=== PATIENT | female | born 1980 | race American Indian/Alaskan Native ===

== ENCOUNTER 2021-05-01 17:51 | Inpatient (IN) | payer OTHER, SELFPAY ==
--- NOTE | 2021-05-01 21:50 | Emergency Department Report ---
ED Psych HPI - General Chief Complaint: Psych Stated Complaint: SUICIDE Time Seen by Provider: 05/01/21 21:30 Source: patient Mode of arrival: Ambulatory - History of Present Illness Initial Comments: Patient is a 40-year-old female presents emergency room with complaints of suic idal ideations. Patient states her suicide she started yesterday. Patient states they are worsening. Patient states that she is having thoughts of overdosing. Patient states she is also having problems with heroin. Patient states she uses heroin frequently. Patient states she uses heroin by injection. Patient states she has track escobedo on both of her arms. Patient states that she is feeling depressed. Patient states that she is also anxious. Patient denies homicidal ideations. Patient denies hallucinations. Patient states she lives on the streets and is homeless. Patient states she is under a lot of stress. Patient also complains of a cough x4 days. Patient states she has a dry cough. Patient states her cough is worsening. Patient complains of fever, loss of smell, loss of taste, shortness of breath, nausea. Patient states that her symptoms are worsening. Patient states she is not vaccinated against COVID-19. Patient states she has had positive sick contacts. Patient states that her shortness of breath is better with rest and worse with exertion. Patient states she has not been evaluated for COVID-19. Patient denies chest pain. Patient denies abdominal pain. Patient also complains of dysuria. Patient states it is burning when she urinates. Patient states has been going on for 3 or 4 days. Patient states is better with rest and worse with urination. MD Complaint: suicidal ideation, feels depressed -: Sudden Associated Psychiatric Symptoms: depression, suicidal ideation, racing thoughts History of same: Yes Quality: constant Improves With: none Worsens With: none Context: recent drug abuse Associated Symptoms: shortness of breath, nausea. denies: confusion, headache, vomiting, syncope, insomnia Treatments Prior to Arrival: none If Self Harm: admits thoughts of, has plan - Related Data Allergies Allergy/AdvReac Type Severity Reaction Status Date / Time No Known Allergies Allergy Verified 05/01/21 18:13 ED Review of Systems ROS: Stated complaint: SUICIDE Other details as noted in HPI Constitutional: see HPI, chills, fever, malaise. denies: diaphoresis Eyes: denies: eye pain, eye discharge, vision change ENT: denies: ear pain, throat pain Respiratory: see HPI, cough, shortness of breath. denies: wheezing Cardiovascular: denies: chest pain, palpitations Endocrine: no symptoms reported Gastrointestinal: nausea. denies: abdominal pain, vomiting, diarrhea Genitourinary: denies: urgency, dysuria, discharge Musculoskeletal: denies: back pain, joint swelling, arthralgia Skin: denies: rash, lesions Neurological: denies: headache, weakness, paresthesias Psychiatric: as per HPI, anxiety, depression, suicidal thoughts Hematological/Lymphatic: denies: easy bleeding, easy bruising ED Past Medical Hx - Past Medical History Previous Medical History?: Yes Hx Psychiatric Treatment: Yes (Bipolar) - Surgical History Past Surgical History?: No - Family History Family history: no significant - Social History Smoking Status: Current Every Day Smoker Substance Use Type: Heroin ED Physical Exam - General Limitations: No Limitations General appearance: alert, in no apparent distress - Head Head exam: Present: atraumatic, normocephalic - Eye Eye exam: Present: normal appearance - ENT ENT exam: Present: mucous membranes moist - Neck Neck exam: Present: normal inspection - Respiratory Respiratory exam: Present: normal lung sounds bilaterally. Absent: respiratory distress, wheezes, rales - Cardiovascular Cardiovascular Exam: Present: regular rate, normal rhythm. Absent: systolic murmur, diastolic murmur, rubs, gallop - GI/Abdominal GI/Abdominal exam: Present: soft, normal bowel sounds - Extremities Exam Extremities exam: Present: normal inspection - Back Exam Back exam: Present: normal inspection - Neurological Exam Neurological exam: Present: alert, oriented X3 - Psychiatric Psychiatric exam: Present: depressed, suicidal ideation - Skin Skin exam: Present: warm, dry, normal color, other (Track escobedo noted on bilateral arms.). Absent: rash ED Course Vital Signs 05/01/21 05/01/21 05/01/21 18:08 21:50 21:54 Temperature 99.3 F 99.9 F H 99.9 F H Pulse Rate 79 74 74 Respiratory 18 20 20 Rate Blood Pressure 152/80 Blood Pressure 116/70 152/80 [Left] O2 Sat by Pulse 100 97 97 Oximetry - Reevaluation(s) Reevaluation #1: Patient is currently NSR psych room and is on isolation. COVID-19 precautions using accordance with CDC guidelines. Patient will be ambulated to assess hypoxia. Patient will have labs and a chest x-ray done. 05/01/21 22:02 Reevaluation #2: Patient was ambulated by the ER check and the patient's oxygen saturation dropped to 89% with minimal ambulation. Patient returned to 94% with rest. Patient will placed on a 1013 for her suicidal ideations. 05/01/21 22:30 Reevaluation #3: I discussed all results with patient. I discussed plan of care with patient. Patient agrees with plan of care and admission. Patient to be admitted to the hospitalist service. 05/01/21 23:25 - Consultations Consultation #1: Hospitalist consulted for admission. Hospitalist to admit patient. 05/01/21 23:25 ED Medical Decision Making - Lab Data Result diagrams: 05/01/21 22:07 05/01/21 22:07 - Radiology Data Radiology results: report reviewed, image reviewed CHEST 1 VIEW INDICATION / CLINICAL INFORMATION: cough STUDY TIME: 2232 COMPARISON: None available. FINDINGS: SUPPORT DEVICES: None HEART / MEDIASTINUM: No significant abnormality. LUNGS / PLEURA: Artifact overlies the image. Mild bibasilar density is probably artifactual. No definite acute infiltrates are seen. No pneumothorax. ADDITIONAL FINDINGS: No significant additional findings. - Medical Decision Making Patient is a 40-year-old female that presents emergency room with complaints of suicidal ideations. During the initial exam, the patient complained of also having Covid symptoms. Patient complained of cough, fever, shortness of breath. Patient also complained of loss of smell. Patient is unvaccinated. Patient was placed on a 1013 due to her suicidal ideations and a plan. Patient was placed on a ER hold. Patient had labs done which were essentially unremarkable except for anemia, UTI and positive UDS.. Patient had a chest x-ray done which was negative for acute findings. I personally reviewed the chest x-ray. During this evaluation, the patient was ambulated with technology education instructor while wearing a oxygen saturation monitor. The patient's oxygen saturation dropped to 89 to 90% with ambulation. Patient returned to 94% with rest. Patient had blood cultures done and then the patient was given Decadron, Zithromax and Rocephin. Patient admitted to the hospital service for further evaluation and treatment. At this time, the patient is unable to be medically cleared and the medical clearance will come from our hospitalist team. Critical care time documented due to the multiple reassessments, prolonged time at the bedside, interpretation of diagnostics and labs. - Differential Diagnosis PUI, Covid, hypoxia, cough, fever, shortness of breath, suicidal ideations Critical Care Time: Yes Critical care time in (mins) excluding proc time.: 35 Critical care attestation.: If time is entered above; I have spent that time in minutes in the direct care of this critically ill patient, excluding procedure time. Critical Care Time: 35 minutes ED Disposition Clinical Impression: Person under investigation for COVID-19, Cough, Shortness of breath, Suicidal ideations, Dysuria, Heroin abuse Fever Qualifiers: Fever type: unspecified Qualified Code(s): R50.9 - Fever, unspecified Respiratory failure Qualifiers: Chronicity: acute Respiratory failure complication: hypoxia Qualified Code(s): J96.01 - Acute respiratory failure with hypoxia UTI (urinary tract infection) Qualifiers: Urinary tract infection type: acute cystitis Hematuria presence: with hematuria Qualified Code(s): N30.01 - Acute cystitis with hematuria Disposition: ADMITTED INPATIENT Is pt being admited?: Yes Does the pt Need Aspirin: No Condition: Stable Time of Disposition: 23:25
[2021-05-01 22:15] LABS: Basophils % (Auto) 0.8 % (0.0-1.8); Eosinophils % (Auto) 1.7 % (0.0-4.3); Hematocrit 31.5 % (30.3-42.9); Hemoglobin 9.7 gm/dl (10.1-14.3); Lymphocytes # (Auto) 1.1 K/mm3 (1.2-5.4); Lymphocytes % (Auto) 44.5 % (13.4-35.0); Mean Corpuscular HGB Conc 31 % (30-34); Monocytes # (Auto) 0.2 K/mm3 (0.0-0.8); Monocytes % (Auto) 9.4 % (0.0-7.3); Platelet Count 309 K/mm3 (140-440); Red Blood Count 4.53 M/mm3 (3.65-5.03); Red Cell Distribution Width 19.3 % (13.2-15.2)
[2021-05-01 22:16] LABS: Mean Corpuscular Volume 70 fl (79-97)
[2021-05-01 22:18] LABS: Bacteria,Urine 2+ /HPF (Negative); Bilirubin,Urine NEG (Negative); Blood,Urine LG (Negative); Color,Urine Straw (Yellow); Protein,Urine <15 mg/dL mg/dL (Negative); Urobilinogen,Urine < 2.0 mg/dL (<2.0)
[2021-05-01 22:35] LABS: Amphetamine Screen,Urine PRESUMPTIVE NEGATIVE; Benzodiazepines Screen,Urine PRESUMPTIVE NEGATIVE; Cannabinoid Screen,Urine PRESUMPTIVE NEGATIVE; Cocaine Screen,Urine PRESUMPTIVE POSITIVE; Methadone Screen,Urine PRESUMPTIVE NEGATIVE; Opiate Screen,Urine PRESUMPTIVE POSITIVE
[2021-05-01 22:37] LABS: Alanine Aminotransferase 36 units/L (7-56); Albumin 3.6 g/dL (3.9-5); Blood Urea Nitrogen 12 mg/dL (7-17); Calcium 8.8 mg/dL (8.4-10.2); Hemolysis Index 0
[2021-05-01] MEDS ORDERED: dexAMETHasone 4 MG/ML VIAL IV ONE (22:53)
[2021-05-01] MEDS ORDERED: AZITHROMYCIN/NS 500 MG/250 ML 500 MG/250 ML BAG IV ONE (22:53)
[2021-05-01] MEDS ORDERED: cefTRIAXone/NS 2 GM/100 ML 2 GM/100 ML BAG IV ONE (22:53)
[2021-05-01 23:01] LABS: BUN/Creatinine Ratio 20
--- NOTE | 2021-05-01 23:04 | XRay Report ---
CHEST 1 VIEW INDICATION / CLINICAL INFORMATION: cough STUDY TIME: 2232 COMPARISON: None available. FINDINGS: SUPPORT DEVICES: None HEART / MEDIASTINUM: No significant abnormality. LUNGS / PLEURA: Artifact overlies the image. Mild bibasilar density is probably artifactual. No defin ite acute infiltrates are seen. No pneumothorax. ADDITIONAL FINDINGS: No significant additional findings. Signer Name: Nathan Mensah MD Signed: 05/01/2021 11:00 PM Workstation Name: [id number]
--- NOTE | 2021-05-02 01:38 | History and Physical Report ---
History of Present Illness Date of examination: 05/02/21 Date of admission: 05/01/21 23:35 Chief complaint: Shortness of breath with cough History of present illness: Patient is a 40-year-old female seen in ED at bedside. Patient presents emergency room with complaints of suicidal ideations. Patient said she is suicidal and homeless. Per ED record, patient states that she is having thoughts of overdosing. Patient states she is also having problems with heroin. Patient states she uses heroin frequently. Patient states she uses heroin by injection. Patient has track escobedo on both of her arms. Patient states that she is feeling depressed and anxious. Patient denies hallucinations. I reviewed medical record and blood work with urine toxicology. Patient is positive for opiates and cocaine. Patient also reports shortness of breath, coughing and generalized weakness. Chest x-ray done no acute finding Past History Past Medical History: other (Psych patient) Past Surgical History: No surgical history Social history: IV drug use (Urine positive for cocaine and opiates) Family history: no significant family history Medications and Allergies Allergies Allergy/AdvReac Type Severity Reaction Status Date / Time No Known Allergies Allergy Verified 05/01/21 18:13 Review of Systems Constitutional: fatigue, malaise Ears, nose, mouth and throat: no epistaxis, no bleeding gums Cardiovascular: shortness of breath Respiratory: cough Gastrointestinal: no BRBPR, no melena Rectal: no itching, no hemorrhoids Musculoskeletal: muscle weakness Integumentary: no pruritis, no redness Psychiatric: anxiety, suicidal ideation, depression, hopelessness, other (Homeless) Hematologic/Lymphatic: no easy bruising, no easy bleeding, no lymphadenopathy, no lymphedema Allergic/Immunologic: no urticaria, no allergic rhinitis Exam - Constitutional Vitals: Temp Pulse Resp BP Pulse Ox 99.9 F H 74 20 152/80 97 05/01/21 21:54 05/01/21 21:54 05/01/21 21:54 05/01/21 21:54 05/01/21 21:54 General appearance: Present: mild distress, well-nourished - EENT Eyes: Present: PERRL ENT: hearing intact, clear oral mucosa - Neck Neck: Present: supple, normal ROM - Respiratory Respiratory effort: normal Respiratory: bilateral: CTA - Cardiovascular Heart Sounds: Present: S1 & S2. Absent: rub, click - Extremities Extremities: pulses symmetrical, No edema Peripheral Pulses: within normal limits - Abdominal General gastrointestinal: Present: soft, non-tender, non-distended, normal bowel sounds Female genitourinary: Present: normal - Integumentary Integumentary: Present: clear, warm, dry - Musculoskeletal Musculoskeletal: gait normal, strength equal bilaterally - Neurologic Neurologic: CNII-XII intact, moves all extremities - Allied Health Allied health notes reviewed: nursing Results - Labs CBC & Chem 7: 05/01/21 22:07 05/02/21 02:26 Labs: Abnormal lab results 05/01/21 05/01/21 05/01/21 Range/Units 22:01 22:07 22:07 WBC 2.6 L (4.5-11.0) K/mm3 Hgb 9.7 L (10.1-14.3) gm/dl MCV 70 L (79-97) fl MCH 22 L (28-32) pg RDW 19.3 H (13.2-15.2) % Lymph % (Auto) 44.5 H (13.4-35.0) % Williamson % (Auto) 9.4 H (0.0-7.3) % Lymph # (Auto) 1.1 L (1.2-5.4) K/mm3 Seg Neutrophils # 1.1 L (1.8-7.7) K/mm3 D-Dimer (0-234) ng/mlDDU Sodium 134 L (137-145) mmol/L AST 54 H (5-40) units/L Alkaline Phosphatase 131 H (35-129) units/L Albumin 3.6 L (3.9-5) g/dL Urine WBC (Auto) 10.0 H (0.0-6.0) /HPF Salicylates (2.8-20.0) mg/dL Acetaminophen (10.0-30.0) ug/mL 05/01/21 05/01/21 05/01/21 Range/Units 22:07 22:07 23:08 WBC (4.5-11.0) K/mm3 Hgb (10.1-14.3) gm/dl MCV (79-97) fl MCH (28-32) pg RDW (13.2-15.2) % Lymph % (Auto) (13.4-35.0) % Williamson % (Auto) (0.0-7.3) % Lymph # (Auto) (1.2-5.4) K/mm3 Seg Neutrophils # (1.8-7.7) K/mm3 D-Dimer 268.18 H (0-234) ng/mlDDU Sodium (137-145) mmol/L AST (5-40) units/L Alkaline Phosphatase (35-129) units/L Albumin (3.9-5) g/dL Urine WBC (Auto) (0.0-6.0) /HPF Salicylates < 0.3 L (2.8-20.0) mg/dL Acetaminophen 5.0 L (10.0-30.0) ug/mL Assessment and Plan - Patient Problems (1) Person under investigation for COVID-19 Current Visit: Yes Status: Acute Plan to address problem: Bronchodilator oxygen supplement as needed Airborne and contact isolation per Covid protocol Monitor inflammatory markers Systemic steroid. Consult infectious disease Ascorbic acid, zinc sulfate, and vitamin D supplement (2) Cocaine abuse Current Visit: Yes Status: Acute Plan to address problem: Discussed multisubstance use cessation (3) Suicidal ideations Current Visit: Yes Status: Acute Plan to address problem: Psych consulted (4) UTI (urinary tract infection) Current Visit: Yes Status: Acute Qualifiers: Urinary tract infection type: acute cystitis Hematuria presence: with hematuria Qualified Code(s): N30.01 - Acute cystitis with hematuria Plan to address problem: Empiric antibiotic with Rocephin Gentle IV hydration (5) DVT prophylaxis Current Visit: Yes Status: Acute Plan to address problem: Subcutaneous Lovenox
[2021-05-02] MEDS ORDERED: METOCLOPRAMIDE 10 MG/2 ML INJ IV PRN (01:44)
[2021-05-02] MEDS ORDERED: NALOXONE 0.4 MG/1 ML INJ IV PRN (01:44)
[2021-05-02] MEDS ORDERED: SENNOSIDES 8.6 MG TAB PO PRN (01:44)
[2021-05-02] MEDS ORDERED: ACETAMINOPHEN 325 MG TAB PO PRN (01:44)
[2021-05-02] MEDS ORDERED: MAGNESIUM HYDROXIDE (MOM) ORAL LIQD UDC PO PRN (01:44)
[2021-05-02 02:04] LABS: C-Reactive Protein 0.1 mg/dL (0.00-1.30)
[2021-05-02 02:58] LABS: C-Reactive Protein 0.1 mg/dL (0.00-1.30)
[2021-05-02] MEDS: ONDANSETRON 4 MG/2 ML INJ IV PRN ×2 (07:00→17:28)
[2021-05-02] MEDS: SODIUM CHLORIDE 0.9% 1000 ML 1,000 ML IV SCH (07:00)
[2021-05-02] MEDS ORDERED: dexAMETHasone 4 MG/ML VIAL IV SCH (10:00)
[2021-05-02] MEDS ORDERED: NITROFURANTOIN MONOHYD/M-CRYST 100 MG CAP PO SCH (10:00)
[2021-05-02] MEDS ORDERED: ZINC SULFATE 220 MG CAP PO SCH (10:00)
--- NOTE | 2021-05-02 10:46 | Consultation ---
History of Present Illness - Reason for Consult Consult date: 05/02/21 Reason for consult: SI, hallucinations - History of Present Psychiatric Illness Per ER Note: Patient is a 40-year-old female seen in ED at bedside. Patient presents emergency room with complaints of suicidal ideations. Patient said she is suicidal and homeless. Per ED record, patient states that she is having thoughts of overdosing. Patient states she is also having problems with heroin. Patient states she uses heroin frequently. Patient states she uses heroin by injection. Patient has track escobedo on both of her arms. Patient states that she is feeling depressed and anxious. Patient denies hallucinations. I reviewed medical record and blood work with urine toxicology. Patient is positive for opiates and cocaine. Patient also reports shortness of breath, coughing and generalized weakness. Chest x-ray done no acute finding The patient was seen today, she appears withdrawn. She says she is depressed and having suicidal thoughts. The patient says "I'm just tired of living." She verbalized using "crack and heroine." She says she's hearing voices telling her to kill herself. The patient says before coming she ran into traffic. She says "I just can't take it any more. I don't want to be here." The patient counselled on drug cessation and rehab. She says she has a history of bipolar and schizophrenia but have been off meds for about a year. PAST PSYCHIATRIC HISTORY: Diagnoses: Schizophrenia and bipolar Suicide attempts or Self-harm behavior: yes Prior psychiatric hospitalizations: Yes Substance Abuse history: heroine and cocaine Previous psychiatric medications tried: could not recall, off for a year Outpatient treatment: denies PAST MEDICAL HISTORY: None reported or document Family Psychiatric History: None reported or documented SOCIAL HISTORY Marital Status: Single Living Arrangements: homeless Employment Status: Unemployed Access to guns/weapons: denies Education: History of Abuse: denies Legal History: denies REVIEW OF SYSTEMS Constitutional: Negative for weight loss ENT: Negative for stridor Respiratory: Negative for cough or hemoptysis All other systems reviewed and are negative MENTAL STATUS EXAMINATION General Appearance and Behavior: Age appropriate, good hygiene, wearing appropriate clothes, calm and cooperative, withdrawn Cooperation: engaged Psychomotor Behavior: Psychomotor normal Mood: depressed Affect and affective range: congruent with stated mood Thought Process: illogical Thought Content: SI, hallucinations Speech: Normal volume, Regular rate and rhythm, Suicidal Ideation: Yes Homicidal Ideation: Denies Hallucinations: Auditory, command Delusions: None elicited Impulse Control: impaired Insight and Judgment: Limited Memory: Limited Attention: attentive Orientation: a/o Assessment and Plan (1) Polysubstance Dependence (2) Bipolar Disorder Treatment Plan [address] 125mg po BID Olanzapine 5mg po daily Trazodone 50mg po qhs Sitter: per primary Medical: Per primary Disposition: recommend acute psychiatric inpatient treatment. Will follow. Thanks case staffed with Dr. Rea Medications and Allergies Allergies Allergy/AdvReac Type Severity Reaction Status Date / Time No Known Allergies Allergy Verified 05/01/21 18:13 Active Meds: Active Medications Acetaminophen (Acetaminophen 325 Mg Tab) 650 mg PO Q4H PRN PRN Reason: Pain MILD(1-3)/Fever >100.5/JON Al Hydrox/Mg Hydrox/Simethicone (Alum-Mag Hydroxide-Simethicone 732-126-73ea/5ml Oral Liqd 30 Ml) 30 ml PO Q4H PRN PRN Reason: Indigestion Ascorbic Acid (Ascorbic Acid 500 Mg Tab) 500 mg PO QDAY JACQUELINE Cholecalciferol (Cholecalciferol (Vit D3) 1000 Unit (25 Mcg) Tab) 1,000 unit PO QDAY JACQUELINE Dexamethasone (Dexamethasone 4 Mg/Ml Vial) 6 mg IV DAILY JACQUELINE Stop: 05/10/21 10:01 Enoxaparin Sodium (Enoxaparin 40 Mg/0.4 Ml Inj) 40 mg SUB-Q DAILY JACQUELINE; Protocol Famotidine (Famotidine 20 Mg/2 Ml Inj) 20 mg IV BID JACQUELINE Ceftriaxone Sodium (Rocephin/Ns 1 Gm/50 Ml) 1 gm in 50 mls @ 100 mls/hr IV Q24H JACQUELINE; Protocol Stop: 05/05/21 23:59 Sodium Chloride (Nacl 0.9% 1000 Ml) 1,000 mls @ 42 mls/hr IV DIRECT JACQUELINE Last Admin: 05/02/21 07:00 Dose: 42 mls/hr Documented by: Magnesium Hydroxide (Magnesium Hydroxide (Mom) Oral Liqd Udc) 30 ml PO Q4H PRN PRN Reason: Constipation Metoclopramide HCl (Metoclopramide 10 Mg/2 Ml Inj) 10 mg IV Q6H PRN PRN Reason: Nausea And Vomiting Naloxone HCl (Naloxone 0.4 Mg/1 Ml Inj) 0.1 mg IV Q2MIN PRN PRN Reason: Res Rate </= 8 or 02 SAT < 92% Ondansetron HCl (Ondansetron 4 Mg/2 Ml Inj) 4 mg IV Q8H PRN PRN Reason: Nausea And Vomiting Last Admin: 05/02/21 07:00 Dose: 4 mg Documented by: Senna (Sennosides 8.6 Mg Tab) 8.6 mg PO Q12HR PRN PRN Reason: Constipation Sodium Chloride (Sodium Chloride 0.9% 10 Ml Flush Syringe) 10 ml IV BID JACQUELINE Sodium Chloride (Sodium Chloride 0.9% 10 Ml Flush Syringe) 10 ml IV PRN PRN PRN Reason: LINE FLUSH Tramadol HCl (Tramadol 50 Mg Tab) 50 mg PO Q6H PRN PRN Reason: Pain, Moderate (4-6) Zinc Sulfate (Zinc Sulfate 220 Mg Cap) 220 mg PO QDAY [facility] Mental Status Exam - Vital signs Last Vital Signs Temp 100.7 F H 05/02/21 03:50 Pulse 83 05/02/21 03:50 Resp 20 05/02/21 03:50 BP 163/104 05/02/21 03:50 Pulse Ox 99 05/02/21 08:05 Results Result Diagrams: 05/01/21 22:07 05/02/21 02:26 Abnormal lab results 05/01/21 05/01/21 05/01/21 Range/Units 22:01 22:07 22:07 WBC 2.6 L (4.5-11.0) K/mm3 Hgb 9.7 L (10.1-14.3) gm/dl MCV 70 L (79-97) fl MCH 22 L (28-32) pg RDW 19.3 H (13.2-15.2) % Lymph % (Auto) 44.5 H (13.4-35.0) % [place] % (Auto) 9.4 H (0.0-7.3) % Lymph # (Auto) 1.1 L (1.2-5.4) K/mm3 Seg Neutrophils # 1.1 L (1.8-7.7) K/mm3 D-Dimer (0-234) ng/mlDDU Sodium 134 L (137-145) mmol/L Glucose (65-100) mg/dL AST 54 H (5-40) units/L Alkaline Phosphatase 131 H (35-129) units/L Lactate Dehydrogenase (91-180) units/L Albumin 3.6 L (3.9-5) g/dL Urine WBC (Auto) 10.0 H (0.0-6.0) /HPF Salicylates (2.8-20.0) mg/dL Acetaminophen (10.0-30.0) ug/mL 05/01/21 05/01/21 05/01/21 Range/Units 22:07 22:07 23:08 WBC (4.5-11.0) K/mm3 Hgb (10.1-14.3) gm/dl MCV (79-97) fl MCH (28-32) pg RDW (13.2-15.2) % Lymph % (Auto) (13.4-35.0) % Monroe % (Auto) (0.0-7.3) % Lymph # (Auto) (1.2-5.4) K/mm3 Seg Neutrophils # (1.8-7.7) K/mm3 D-Dimer 268.18 H (0-234) ng/mlDDU Sodium (137-145) mmol/L Glucose (65-100) mg/dL AST (5-40) units/L Alkaline Phosphatase (35-129) units/L Lactate Dehydrogenase (91-180) units/L Albumin (3.9-5) g/dL Urine WBC (Auto) (0.0-6.0) /HPF Salicylates < 0.3 L (2.8-20.0) mg/dL Acetaminophen 5.0 L (10.0-30.0) ug/mL 05/01/21 05/02/21 05/02/21 Range/Units 23:08 02:26 02:26 WBC (4.5-11.0) K/mm3 Hgb (10.1-14.3) gm/dl MCV (79-97) fl MCH (28-32) pg RDW (13.2-15.2) % Lymph % (Auto) (13.4-35.0) % [place] % (Auto) (0.0-7.3) % Lymph # (Auto) (1.2-5.4) K/mm3 Seg Neutrophils # (1.8-7.7) K/mm3 D-Dimer 383.59 H (0-234) ng/mlDDU Sodium (137-145) mmol/L Glucose 118 H (65-100) mg/dL AST (5-40) units/L Alkaline Phosphatase (35-129) units/L Lactate Dehydrogenase 206 H 200 H (91-180) units/L Albumin (3.9-5) g/dL Urine WBC (Auto) (0.0-6.0) /HPF Salicylates (2.8-20.0) mg/dL Acetaminophen (10.0-30.0) ug/mL All other labs normal.
--- NOTE | 2021-05-02 11:49 | Event Note ---
Date: 05/02/21 Patient seen and evaluated this morning during rounds. Psychiatry recommends inpatient psych treatment and ten thirteen order has been placed. We will continue supportive care pending COVID-19 PCR result.
[2021-05-02] MEDS ORDERED: IBUPROFEN 800 MG TAB PO PRN (13:20)
--- NOTE | 2021-05-02 13:47 | Consultation ---
History of Present Illness - Reason for Consult Consult date: 05/02/21 PUI Requesting physician: PATRICA DANIELLE - History of Present Illness The patient is a 40-year-old female with polysubstance abuse admitted to the hospital with suicidal ideation. She was also having cough and shortness of breath. Labs showed WBC 2.6, D-dimer 383, ferritin 18.0, LDH 200, procalcitonin 0.19, CRP 0.1. UA with 10 WBC, 8 RBC. Urinary tox screen positive for cocaine and opiates. Chest x-ray did not reveal any pneumonia. Patient was made a COVID-19 PUI and ID was consulted. Review of Systems: reviewed in the chart, unable to obtain, minimize risk of transmission Past History Past Medical History: other (Psych patient) Past Surgical History: No surgical history Social history: IV drug use (Urine positive for cocaine and opiates) Family history: no significant family history Medications and Allergies Allergies Allergy/AdvReac Type Severity Reaction Status Date / Time No Known Allergies Allergy Verified 05/01/21 18:13 Active Meds: Active Medications Acetaminophen (Acetaminophen 325 Mg Tab) 650 mg PO Q4H PRN PRN Reason: Pain MILD(1-3)/Fever >100.5/JON Al Hydrox/Mg Hydrox/Simethicone (Alum-Mag Hydroxide-Simethicone [id number]/5ml Oral Liqd 30 Ml) 30 ml PO Q4H PRN PRN Reason: Indigestion Ascorbic Acid (Ascorbic Acid 500 Mg Tab) 500 mg PO QDAY [facility] Cholecalciferol (Cholecalciferol (Vit D3) 1000 Unit (25 Mcg) Tab) 1,000 unit PO QDAY JACQUELINE Clonidine HCl (Clonidine 0.2 Mg Tab) 0.2 mg PO Q6HR JACQUELINE Divalproex Sodium (Divalproex Dr 125 Mg Tab) 125 mg PO BID JACQUELINE Enoxaparin Sodium (Enoxaparin 40 Mg/0.4 Ml Inj) 40 mg SUB-Q DAILY JACQUELINE; Protocol Famotidine (Famotidine 20 Mg/2 Ml Inj) 20 mg IV BID JACQUELINE Sodium Chloride (Nacl 0.9% 1000 Ml) 1,000 mls @ 42 mls/hr IV DIRECT JACQUELINE Last Admin: 05/02/21 07:00 Dose: 42 mls/hr Documented by: Ibuprofen (Ibuprofen 800 Mg Tab) 800 mg PO Q8H PRN PRN Reason: Headache Magnesium Hydroxide (Magnesium Hydroxide (Mom) Oral Liqd Udc) 30 ml PO Q4H PRN PRN Reason: Constipation Metoclopramide HCl (Metoclopramide 10 Mg/2 Ml Inj) 10 mg IV Q6H PRN PRN Reason: Nausea And Vomiting Naloxone HCl (Naloxone 0.4 Mg/1 Ml Inj) 0.1 mg IV Q2MIN PRN PRN Reason: Res Rate </= 8 or 02 SAT < 92% Olanzapine (Olanzapine 5 Mg Tab) 5 mg PO QDAY JACQUELINE Ondansetron HCl (Ondansetron 4 Mg/2 Ml Inj) 4 mg IV Q8H PRN PRN Reason: Nausea And Vomiting Last Admin: 05/02/21 07:00 Dose: 4 mg Documented by: Senna (Sennosides 8.6 Mg Tab) 8.6 mg PO Q12HR PRN PRN Reason: Constipation Sodium Chloride (Sodium Chloride 0.9% 10 Ml Flush Syringe) 10 ml IV BID JACQUELINE Sodium Chloride (Sodium Chloride 0.9% 10 Ml Flush Syringe) 10 ml IV PRN PRN PRN Reason: LINE FLUSH Tramadol HCl (Tramadol 50 Mg Tab) 50 mg PO Q6H PRN PRN Reason: Pain, Moderate (4-6) Trazodone HCl (Trazodone 50 Mg Tab) 50 mg PO QHS [facility] Physical Examination - Physical Exam Narrative exam: Physical Exam (reviewed in chart to minimize risk of transmission) Constitutional: deferred Head, Ears, Nose: deferred Eyes: deferred Neck: deferred Oral: deferred Cardiovascular: deferred Respiratory: deferred GI: deferred Musculoskeletal: deferred Skin: deferred Hem/Lymphatic: deferred Psych: deferred Neurological: deferred - Constitutional Vitals: Vital Signs Temp Pulse Resp BP Pulse Ox 100.7 F H 83 20 163/104 99 05/02/21 03:50 05/02/21 03:50 05/02/21 03:50 05/02/21 03:50 05/02/21 08:05 Temperature -Last 24 Hours Temperature 100.7 F Temperature 99.9 F Temperature 99.9 F Temperature 99.3 F Results - Labs CBC & Chem 7: 05/01/21 22:07 05/02/21 02:26 Labs: Abnormal lab results 05/01/21 05/01/21 05/01/21 Range/Units 22:01 22:07 22:07 WBC 2.6 L (4.5-11.0) K/mm3 Hgb 9.7 L (10.1-14.3) gm/dl MCV 70 L (79-97) fl MCH 22 L (28-32) pg RDW 19.3 H (13.2-15.2) % Lymph % (Auto) 44.5 H (13.4-35.0) % [place] % (Auto) 9.4 H (0.0-7.3) % Lymph # (Auto) 1.1 L (1.2-5.4) K/mm3 Seg Neutrophils # 1.1 L (1.8-7.7) K/mm3 D-Dimer (0-234) ng/mlDDU Sodium 134 L (137-145) mmol/L Glucose (65-100) mg/dL AST 54 H (5-40) units/L Alkaline Phosphatase 131 H (35-129) units/L Lactate Dehydrogenase (91-180) units/L Albumin 3.6 L (3.9-5) g/dL Urine WBC (Auto) 10.0 H (0.0-6.0) /HPF Salicylates (2.8-20.0) mg/dL Acetaminophen (10.0-30.0) ug/mL 05/01/21 05/01/21 05/01/21 Range/Units 22:07 22:07 23:08 WBC (4.5-11.0) K/mm3 Hgb (10.1-14.3) gm/dl MCV (79-97) fl MCH (28-32) pg RDW (13.2-15.2) % Lymph % (Auto) (13.4-35.0) % [place] % (Auto) (0.0-7.3) % Lymph # (Auto) (1.2-5.4) K/mm3 Seg Neutrophils # (1.8-7.7) K/mm3 D-Dimer 268.18 H (0-234) ng/mlDDU Sodium (137-145) mmol/L Glucose (65-100) mg/dL AST (5-40) units/L Alkaline Phosphatase (35-129) units/L Lactate Dehydrogenase (91-180) units/L Albumin (3.9-5) g/dL Urine WBC (Auto) (0.0-6.0) /HPF Salicylates < 0.3 L (2.8-20.0) mg/dL Acetaminophen 5.0 L (10.0-30.0) ug/mL 05/01/21 05/02/21 05/02/21 Range/Units 23:08 02:26 02:26 WBC (4.5-11.0) K/mm3 Hgb (10.1-14.3) gm/dl MCV (79-97) fl MCH (28-32) pg RDW (13.2-15.2) % Lymph % (Auto) (13.4-35.0) % [place] % (Auto) (0.0-7.3) % Lymph # (Auto) (1.2-5.4) K/mm3 Seg Neutrophils # (1.8-7.7) K/mm3 D-Dimer 383.59 H (0-234) ng/mlDDU Sodium (137-145) mmol/L Glucose 118 H (65-100) mg/dL AST (5-40) units/L Alkaline Phosphatase (35-129) units/L Lactate Dehydrogenase 206 H 200 H (91-180) units/L Albumin (3.9-5) g/dL Urine WBC (Auto) (0.0-6.0) /HPF Salicylates (2.8-20.0) mg/dL Acetaminophen (10.0-30.0) ug/mL - Imaging and Cardiology Chest x-ray: report reviewed, image reviewed (no pna) Assessment and Plan Cultures: SARS CoV2 PCR: Pending 05/01/2021 blood culture: In process A/P: 40-year-old female with: #COVID-19 PUI #Suicidal ideation #Leukopenia #Polysubstance abuse including IVDU Recs: Patient is not hypoxic, has no evidence of pneumonia on chest x-ray. Antibiotics and steroids discontinued Follow-up COVID-19 PCR June Norris MD, FACP [facility] O: [phone] F: [phone]
[2021-05-02] MEDS: cloNIDine 0.2 MG TAB PO SCH ×2 (15:00→18:09)
[2021-05-02] MEDS: ENOXAPARIN 40 MG/0.4 ML INJ SUB-Q SCH (17:35)
[2021-05-02] MEDS: FAMOTIDINE 20 MG/2 ML INJ IV SCH ×2 (17:36→22:32)
[2021-05-02] MEDS: ASCORBIC ACID 500 MG TAB PO SCH (17:36)
[2021-05-02] MEDS: CHOLECALCIFEROL (VIT D3) 1000 UNIT (25 mcg) TAB PO SCH (17:37)
[2021-05-02] MEDS: DIVALPROEX DR 125 MG TAB PO SCH ×2 (17:37→22:30)
[2021-05-02] MEDS ORDERED: cefTRIAXone/NS 1 GM/50 ML 1 GM/50 ML BAG IV SCH (22:00)
[2021-05-02] MEDS: traZODone 50 MG TAB PO SCH (22:32)
[2021-05-03] MEDS: cloNIDine 0.2 MG TAB PO SCH ×4 (00:42→23:47)
[2021-05-03 07:01] LABS: Hematocrit 37.2 % (30.3-42.9); Mean Corpuscular HGB Conc 32 % (30-34); Platelet Count 404 K/mm3 (140-440); Red Blood Count 5.48 M/mm3 (3.65-5.03); Red Cell Distribution Width 18.8 % (13.2-15.2)
[2021-05-03 07:08] LABS: Mean Corpuscular Volume 68 fl (79-97)
[2021-05-03 07:25] LABS: Alanine Aminotransferase 31 units/L (7-56); Blood Urea Nitrogen 14 mg/dL (7-17); Calcium 9.5 mg/dL (8.4-10.2); Hemolysis Index 0
--- NOTE | 2021-05-03 07:32 | Progress Note ---
Assessment and Plan Assessment and plan: #COVID-19 infection -positive PCR 05/01 -not requiring oxygen, no indication for steroids or remdesivir at this time -continuous pulse oximetry -continue isolation per COVID protocols -supportive care #Suicidal ideation -Psychiatry following, assistance appreciated -no endorsement of SI today during interview -continue Depakote and Zyprexa #Leukopenia -WBC improved to 4.6 today -will continue to monitor -patient has history of IVDU, will consider Hepatitis and HIV screening #Polysubstance abuse -UDS positive for opiates and cocaine -self reported heroin IV use -IVFs and clondine for withdrawal symptoms -PRN zofran for N/V #DVT prophylaxis -lovenox Disposition Plan: Continue medical care Total Time Spent with Patient (Minutes): 20 minutes History Interval history: No acute events overnight. Patient nonconversant this morning and is sleeping peacefully. Hospitalist Physical - Physical exam Narrative exam: GENERAL: Thin woman. Lying in bed bed in no acute distress. HEENT: Poor dentition CHEST/LUNGS: CTAB on room air HEART/CARDIOVASCULAR: RRR. No murmur, rubs or gallops appreciated. ABDOMEN: +BS. NT/ND. EXTREMITIES: No cyanosis, clubbing or edema. PSYCH: Cooperative. - Constitutional Vitals: Temp Pulse Resp BP Pulse Ox 99.8 F H 86 18 158/103 94 05/03/21 04:11 05/03/21 04:11 05/03/21 04:11 05/03/21 04:11 05/03/21 04:11 General appearance: Present: mild distress, well-nourished - Allied Health Allied health notes reviewed: nursing Results - Labs CBC & Chem 7: 05/03/21 06:40 05/03/21 06:40 Labs: Laboratory Last Values WBC 4.6 K/mm3 (4.5-11.0) 05/03/21 06:40 RBC 5.48 M/mm3 (3.65-5.03) H 05/03/21 06:40 Hgb 12.0 gm/dl (10.1-14.3) 05/03/21 06:40 Hct 37.2 % (30.3-42.9) 05/03/21 06:40 MCV 68 fl (79-97) L 05/03/21 06:40 MCH 22 pg (28-32) L 05/03/21 06:40 MCHC 32 % (30-34) 05/03/21 06:40 RDW 18.8 % (13.2-15.2) H 05/03/21 06:40 Plt Count 404 K/mm3 (140-440) 05/03/21 06:40 Lymph % (Auto) 44.5 % (13.4-35.0) H 05/01/21 22:07 [place] % (Auto) 9.4 % (0.0-7.3) H 05/01/21 22:07 Eos % (Auto) 1.7 % (0.0-4.3) 05/01/21 22:07 Baso % (Auto) 0.8 % (0.0-1.8) 05/01/21 22:07 Lymph # (Auto) 1.1 K/mm3 (1.2-5.4) L 05/01/21 22:07 [place] # (Auto) 0.2 K/mm3 (0.0-0.8) 05/01/21 22:07 Eos # (Auto) 0.0 K/mm3 (0.0-0.4) 05/01/21 22:07 Baso # (Auto) 0.0 K/mm3 (0.0-0.1) 05/01/21 22:07 Seg Neutrophils % 43.6 % (40.0-70.0) 05/01/21 22:07 Seg Neutrophils # 1.1 K/mm3 (1.8-7.7) L 05/01/21 22:07 D-Dimer 383.59 ng/mlDDU (0-234) H 05/02/21 02:26 Sodium 134 mmol/L (137-145) L 05/01/21 22:07 Potassium 4.1 mmol/L (3.6-5.0) 05/01/21 22:07 Chloride 99.3 mmol/L (98-107) 05/01/21 22:07 Carbon Dioxide 25 mmol/L (22-30) 05/01/21 22:07 Anion Gap 14 mmol/L 05/01/21 22:07 BUN 12 mg/dL (7-17) 05/01/21 22:07 Creatinine 0.6 mg/dL (0.6-1.2) 05/01/21 22:07 Estimated GFR > 60 ml/min 05/01/21 22:07 BUN/Creatinine Ratio 20 % 05/01/21 22:07 Glucose 118 mg/dL (65-100) H 05/02/21 02:26 Calcium 8.8 mg/dL (8.4-10.2) 05/01/21 22:07 Ferritin 18.0 ng/mL (10.0-200.0) 05/02/21 02:26 Total Bilirubin < 0.20 mg/dL (0.1-1.2) 05/01/21 22:07 AST 54 units/L (5-40) H 05/01/21 22:07 ALT 36 units/L (7-56) 05/01/21 22:07 Alkaline Phosphatase 131 units/L (35-129) H 05/01/21 22:07 Lactate Dehydrogenase 200 units/L (91-180) H 05/02/21 02:26 C-Reactive Protein 0.10 mg/dL (0.00-1.30) 05/02/21 02:26 Total Protein 7.5 g/dL (6.3-8.2) 05/01/21 22:07 Albumin 3.6 g/dL (3.9-5) L 05/01/21 22:07 Albumin/Globulin Ratio 0.9 % 05/03/21 06:40 Procalcitonin 0.19 ng/mL (<0.15) 05/01/21 23:08 HCG, Qual Negative (Negative) 05/01/21 22:07 Urine Color Straw (Yellow) 05/01/21 22:01 Urine Turbidity Clear (Clear) 05/01/21 22:01 Urine pH 7.0 (5.0-7.0) 05/01/21 22:01 Ur Specific [place] 1.006 (1.003-1.030) 05/01/21 22:01 Urine Protein <15 mg/dl mg/dL (Negative) 05/01/21 22:01 Urine Glucose (UA) Neg mg/dL (Negative) 05/01/21 22:01 Urine Ketones Neg mg/dL (Negative) 05/01/21 22:01 Urine Blood Lg (Negative) 05/01/21 22:01 Urine Nitrite Neg (Negative) 05/01/21 22:01 Urine Bilirubin Neg (Negative) 05/01/21 22:01 Urine Urobilinogen < 2.0 mg/dL (<2.0) 05/01/21 22:01 Ur Leukocyte Esterase Tr (Negative) 05/01/21 22:01 Urine WBC (Auto) 10.0 /HPF (0.0-6.0) H 05/01/21 22:01 Urine RBC (Auto) 8.0 /HPF (0.0-6.0) 05/01/21 22:01 U Epithel Cells (Auto) 1.0 /HPF (0-13.0) 05/01/21 22:01 Urine Bacteria (Auto) 2+ /HPF (Negative) 05/01/21 22:01 Salicylates < 0.3 mg/dL (2.8-20.0) L 05/01/21 22:07 Urine Opiates Screen Presumptive positive 05/01/21 22:01 Urine Methadone Screen Presumptive negative 05/01/21 22:01 Acetaminophen 5.0 ug/mL (10.0-30.0) L 05/01/21 22:07 Ur Barbiturates Screen Presumptive negative 05/01/21 22:01 Ur Phencyclidine Scrn Presumptive negative 05/01/21 22:01 Ur Amphetamines Screen Presumptive negative 05/01/21 22:01 U Benzodiazepines Scrn Presumptive negative 05/01/21 22:01 Urine Cocaine Screen Presumptive positive 05/01/21 22:01 U Marijuana (THC) Screen Presumptive negative 05/01/21 22:01 Drugs of Abuse Note Disclamer 05/01/21 22:01 Plasma/Serum Alcohol < 0.01 % (0-0.07) 05/01/21 22:07 Coronavirus (PCR) Positive (Negative) A 05/02/21 Unknown Microbiology: Microbiology 05/01/21 23:42 Peripheral/Venous Blood Culture - Preliminary NO GROWTH AFTER 24 HOURS 05/01/21 23:08 Peripheral/Venous Blood Culture - Preliminary NO GROWTH AFTER 24 HOURS Oneill/IV: Voiding Method Toilet Active Medications - Current Medications Current Medications: Generic Name Dose Route Start Last Admin Trade Name Freq PRN Reason Stop Dose Admin Acetaminophen 650 mg 05/02/21 01:44 Acetaminophen 325 Mg Tab PO Q4H PRN Pain MILD(1-3)/Fever >100.5/JON Al Hydrox/Mg Hydrox/Simethicone 30 ml 05/02/21 01:44 Alum-Mag Hydroxide-Simethicone [id number]/5ml Oral Liqd 30 Ml PO Q4H PRN Indigestion Ascorbic Acid 500 mg 05/02/21 10:00 05/02/21 17:36 Ascorbic Acid 500 Mg Tab PO 500 mg QDAY JACQUELINE Administration Cholecalciferol 1,000 unit 05/02/21 10:00 05/02/21 17:37 Cholecalciferol (Vit D3) 1000 Unit (25 Mcg) Tab PO 1,000 unit QDAY JACQUELINE Administration Clonidine HCl 0.2 mg 05/02/21 14:00 05/03/21 06:19 Clonidine 0.2 Mg Tab PO 0.2 mg Q6HR JACQUELINE Administration Divalproex Sodium 125 mg 05/02/21 11:00 05/02/21 22:[address] 125 Mg Tab PO Not Given BID JACQUELINE Enoxaparin Sodium 40 mg 05/02/21 10:00 05/02/21 17:35 Enoxaparin 40 Mg/0.4 Ml Inj SUB-Q 40 mg DAILY JACQUELINE Administration Protocol Famotidine 20 mg 05/02/21 10:00 05/02/21 22:32 Famotidine 20 Mg/2 Ml Inj IV 20 mg BID JACQUELINE Administration Sodium Chloride 1,000 mls @ 42 mls/hr 05/02/21 06:45 05/02/21 07:00 Nacl 0.9% 1000 Ml IV 42 mls/hr DIRECT JACQUELINE Administration Ibuprofen 800 mg 05/02/21 13:20 Ibuprofen 800 Mg Tab PO Q8H PRN Headache Magnesium Hydroxide 30 ml 05/02/21 01:44 Magnesium Hydroxide (Mom) Oral Liqd Udc PO Q4H PRN Constipation Metoclopramide HCl 10 mg 05/02/21 01:44 Metoclopramide 10 Mg/2 Ml Inj IV Q6H PRN Nausea And Vomiting Naloxone HCl 0.1 mg 05/02/21 01:44 Naloxone 0.4 Mg/1 Ml Inj IV Q2MIN PRN Res Rate </= 8 or 02 SAT < 92% Olanzapine 5 mg 05/02/21 11:00 05/02/21 17:37 Olanzapine 5 Mg Tab PO 5 mg QDAY JACQUELINE Administration Ondansetron HCl 4 mg 05/02/21 01:44 05/02/21 17:28 Ondansetron 4 Mg/2 Ml Inj IV 4 mg Q8H PRN Administration Nausea And Vomiting Senna 8.6 mg 05/02/21 01:44 Sennosides 8.6 Mg Tab PO Q12HR PRN Constipation Sodium Chloride 10 ml 05/02/21 10:00 05/02/21 22:32 Sodium Chloride 0.9% 10 Ml Flush Syringe IV 10 ml BID JACQUELINE Administration Sodium Chloride 10 ml 05/02/21 01:44 Sodium Chloride 0.9% 10 Ml Flush Syringe IV PRN PRN LINE FLUSH Tramadol HCl 50 mg 05/02/21 01:48 Tramadol 50 Mg Tab PO Q6H PRN Pain, Moderate (4-6) Trazodone HCl 50 mg 05/02/21 22:00 05/02/21 22:32 Trazodone 50 Mg Tab PO 50 mg QHS JACQUELINE Administration
[2021-05-03 07:33] LABS: BUN/Creatinine Ratio 23
[2021-05-03] MEDS: ASCORBIC ACID 500 MG TAB PO SCH (09:14)
[2021-05-03] MEDS: FAMOTIDINE 20 MG/2 ML INJ IV SCH (09:15)
[2021-05-03] MEDS: CHOLECALCIFEROL (VIT D3) 1000 UNIT (25 mcg) TAB PO SCH (09:15)
[2021-05-03] MEDS: ENOXAPARIN 40 MG/0.4 ML INJ SUB-Q SCH (09:18)
[2021-05-03] MEDS: DIVALPROEX DR 125 MG TAB PO SCH ×2 (09:18→21:25)
--- NOTE | 2021-05-03 11:29 | Progress Note ---
Assessment and Plan Cultures: SARS CoV2 PCR: Positive 05/01/2021 blood culture: No growth A/P: 40-year-old female with: #COVID-19 infection #Suicidal ideation #Leukopenia #Polysubstance abuse including IVDU Recs: Patient is not hypoxic, has no evidence of pneumonia on chest x-ray. No need for antibiotics, remdesivir or steroids ID will sign off. Please reconsult as needed. June Norris MD, FACP [facility] O: [phone] F: [phone] Subjective Date of service: 05/03/21 Interval history: No fever. Remains on room air. Objective - Exam Narrative Exam: Physical Exam (reviewed in chart to minimize risk of transmission) Constitutional: deferred Head, Ears, Nose: deferred Eyes: deferred Neck: deferred Oral: deferred Cardiovascular: deferred Respiratory: deferred GI: deferred Musculoskeletal: deferred Skin: deferred Hem/Lymphatic: deferred Psych: deferred Neurological: deferred - Constitutional Vitals: Vital Signs Temp Pulse Resp BP Pulse Ox 99.8 F H 86 18 158/103 100 05/03/21 04:11 05/03/21 04:11 05/03/21 04:11 05/03/21 04:11 05/03/21 08:30 Temperature -Last 24 Hours Temperature 99.8 F Temperature 99.6 F Temperature 98.2 F Temperature 99.2 F Temperature 99.2 F - Labs CBC & Chem 7: 05/03/21 06:40 05/03/21 06:40 Labs: Abnormal lab results 05/02/21 05/03/21 05/03/21 Range/Units Unknown 06:40 06:40 RBC 5.48 H (3.65-5.03) M/mm3 MCV 68 L (79-97) fl MCH 22 L (28-32) pg RDW 18.8 H (13.2-15.2) % Sodium 133 L (137-145) mmol/L Potassium 3.5 L (3.6-5.0) mmol/L Chloride 95.8 L (98-107) mmol/L Glucose 112 H (65-100) mg/dL Total Protein 8.7 H (6.3-8.2) g/dL Coronavirus (PCR) Positive A (Negative)
[2021-05-03] MEDS: FAMOTIDINE 20 MG TAB PO SCH ×2 (12:42→21:26)
[2021-05-03] MEDS: traMADol 50 MG TAB PO PRN ×2 (12:43→21:26)
[2021-05-03] MEDS: traZODone 50 MG TAB PO SCH (21:26)
[2021-05-03] MEDS: SODIUM CHLORIDE 0.9% 1000 ML 1,000 ML IV SCH (21:27)
[2021-05-03] MEDS: ONDANSETRON 4 MG/2 ML INJ IV PRN (21:41)
[2021-05-04] MEDS: cloNIDine 0.2 MG TAB PO SCH ×4 (05:39→18:09)
[2021-05-04 06:42] LABS: Hematocrit 35.4 % (30.3-42.9); Mean Corpuscular HGB Conc 34 % (30-34); Platelet Count 363 K/mm3 (140-440); Red Blood Count 5.22 M/mm3 (3.65-5.03); Red Cell Distribution Width 19.3 % (13.2-15.2)
[2021-05-04 06:45] LABS: Mean Corpuscular Volume 68 fl (79-97)
[2021-05-04 07:02] LABS: BUN/Creatinine Ratio 26; Blood Urea Nitrogen 18 mg/dL (7-17); Calcium 9.3 mg/dL (8.4-10.2); Hemolysis Index 8
--- NOTE | 2021-05-04 07:39 | Progress Note ---
Assessment and Plan Assessment and plan: #COVID-19 infection -positive PCR 05/01 -not requiring oxygen, no indication for steroids or remdesivir at this time -continuous pulse oximetry -continue isolation per COVID protocols -supportive care #Suicidal ideation -Psychiatry following, assistance appreciated -continue Depakote and Zyprexa #Acidosis -Bicarbonate level 18, AG nineteen -Normal saline discontinued -Repeat BMP and lactate ordered #UTI -Urine culture growing gram-negative rods -Patient reported dysuria -started ceftriaxone, will treat for 3 days #Leukopenia -resolved -patient has history of IVDU, will consider Hepatitis and HIV screening #Polysubstance abuse -UDS positive for opiates and cocaine -self reported heroin IV use -IVFs and clondine for withdrawal symptoms -PRN zofran for N/V #DVT prophylaxis -lovenox Disposition Plan: Discharge to inpatient psych once medically stable Total Time Spent with Patient (Minutes): 20 minutes History Interval history: No acute events overnight. Patient reports feeling a little bit better today. Is able to tolerate liquids without issue. No other complaints at this time. Hospitalist Physical - Physical exam Narrative exam: GENERAL: Thin woman. Lying in bed bed in no acute distress. HEENT: Poor dentition CHEST/LUNGS: CTAB on room air HEART/CARDIOVASCULAR: RRR. No murmur, rubs or gallops appreciated. ABDOMEN: +BS. NT/ND. EXTREMITIES: No cyanosis, clubbing or edema. PSYCH: Cooperative. - Constitutional Vitals: Temp Pulse Resp BP Pulse Ox 99.8 F H 63 20 145/94 100 05/04/21 05:14 05/04/21 05:39 05/04/21 05:14 05/04/21 05:39 05/04/21 05:14 General appearance: Present: mild distress, well-nourished Results - Labs CBC & Chem 7: 05/04/21 05:04 05/04/21 05:04 Labs: Laboratory Last Values WBC 5.6 K/mm3 (4.5-11.0) 05/04/21 05:04 RBC 5.22 M/mm3 (3.65-5.03) H 05/04/21 05:04 Hgb 12.0 gm/dl (10.1-14.3) 05/04/21 05:04 Hct 35.4 % (30.3-42.9) 05/04/21 05:04 MCV 68 fl (79-97) L 05/04/21 05:04 MCH 23 pg (28-32) L 05/04/21 05:04 MCHC 34 % (30-34) 05/04/21 05:04 RDW 19.3 % (13.2-15.2) H 05/04/21 05:04 Plt Count 363 K/mm3 (140-440) 05/04/21 05:04 Lymph % (Auto) 44.5 % (13.4-35.0) H 05/01/21 22:07 [place] % (Auto) 9.4 % (0.0-7.3) H 05/01/21 22:07 Eos % (Auto) 1.7 % (0.0-4.3) 05/01/21 22:07 Baso % (Auto) 0.8 % (0.0-1.8) 05/01/21 22:07 Lymph # (Auto) 1.1 K/mm3 (1.2-5.4) L 05/01/21 22:07 [place] # (Auto) 0.2 K/mm3 (0.0-0.8) 05/01/21 22:07 Eos # (Auto) 0.0 K/mm3 (0.0-0.4) 05/01/21 22:07 Baso # (Auto) 0.0 K/mm3 (0.0-0.1) 05/01/21 22:07 Seg Neutrophils % 43.6 % (40.0-70.0) 05/01/21 22:07 Seg Neutrophils # 1.1 K/mm3 (1.8-7.7) L 05/01/21 22:07 D-Dimer 383.59 ng/mlDDU (0-234) H 05/02/21 02:26 Sodium 139 mmol/L (137-145) 05/04/21 05:04 Potassium 3.7 mmol/L (3.6-5.0) 05/04/21 05:04 Chloride 102.2 mmol/L (98-107) 05/04/21 05:04 Carbon Dioxide 18 mmol/L (22-30) L D 05/04/21 05:04 Anion Gap 23 mmol/L 05/04/21 05:04 BUN 18 mg/dL (7-17) H 05/04/21 05:04 Creatinine 0.7 mg/dL (0.6-1.2) 05/04/21 05:04 Estimated GFR > 60 ml/min 05/04/21 05:04 BUN/Creatinine Ratio 26 % 05/04/21 05:04 Glucose 97 mg/dL (65-100) 05/04/21 05:04 Calcium 9.3 mg/dL (8.4-10.2) 05/04/21 05:04 Ferritin 18.0 ng/mL (10.0-200.0) 05/02/21 02:26 Total Bilirubin 0.20 mg/dL (0.1-1.2) 05/03/21 06:40 AST 31 units/L (5-40) 05/03/21 06:40 ALT 31 units/L (7-56) 05/03/21 06:40 Alkaline Phosphatase 125 units/L (35-129) 05/03/21 06:40 Lactate Dehydrogenase 200 units/L (91-180) H 05/02/21 02:26 C-Reactive Protein 0.10 mg/dL (0.00-1.30) 05/02/21 02:26 Total Protein 8.7 g/dL (6.3-8.2) H 05/03/21 06:40 Albumin 4.0 g/dL (3.9-5) 05/03/21 06:40 Albumin/Globulin Ratio 0.9 % 05/03/21 06:40 Procalcitonin 0.19 ng/mL (<0.15) 05/01/21 23:08 HCG, Qual Negative (Negative) 05/01/21 22:07 Urine Color Straw (Yellow) 05/01/21 22:01 Urine Turbidity Clear (Clear) 05/01/21 22:01 Urine pH 7.0 (5.0-7.0) 05/01/21 22:01 Ur Specific [place] 1.006 (1.003-1.030) 05/01/21 22:01 Urine Protein <15 mg/dl mg/dL (Negative) 05/01/21 22:01 Urine Glucose (UA) Neg mg/dL (Negative) 05/01/21 22:01 Urine Ketones Neg mg/dL (Negative) 05/01/21 22:01 Urine Blood Lg (Negative) 05/01/21 22:01 Urine Nitrite Neg (Negative) 05/01/21 22:01 Urine Bilirubin Neg (Negative) 05/01/21 22:01 Urine Urobilinogen < 2.0 mg/dL (<2.0) 05/01/21 22:01 Ur Leukocyte Esterase Tr (Negative) 05/01/21 22:01 Urine WBC (Auto) 10.0 /HPF (0.0-6.0) H 05/01/21 22:01 Urine RBC (Auto) 8.0 /HPF (0.0-6.0) 05/01/21 22:01 U Epithel Cells (Auto) 1.0 /HPF (0-13.0) 05/01/21 22:01 Urine Bacteria (Auto) 2+ /HPF (Negative) 05/01/21 22:01 Salicylates < 0.3 mg/dL (2.8-20.0) L 05/01/21 22:07 Urine Opiates Screen Presumptive positive 05/01/21 22:01 Urine Methadone Screen Presumptive negative 05/01/21 22:01 Acetaminophen 5.0 ug/mL (10.0-30.0) L 05/01/21 22:07 Ur Barbiturates Screen Presumptive negative 05/01/21 22:01 Ur Phencyclidine Scrn Presumptive negative 05/01/21 22:01 Ur Amphetamines Screen Presumptive negative 05/01/21 22:01 U Benzodiazepines Scrn Presumptive negative 05/01/21 22:01 Urine Cocaine Screen Presumptive positive 05/01/21 22:01 U Marijuana (THC) Screen Presumptive negative 05/01/21 22:01 Drugs of Abuse Note Disclamer 05/01/21 22:01 Plasma/Serum Alcohol < 0.01 % (0-0.07) 05/01/21 22:07 Coronavirus (PCR) Positive (Negative) A 05/02/21 Unknown Microbiology: Microbiology 05/01/21 23:42 Peripheral/Venous Blood Culture - Preliminary NO GROWTH AFTER 48 HOURS 05/01/21 23:08 Peripheral/Venous Blood Culture - Preliminary NO GROWTH AFTER 48 HOURS 05/01/21 22:01 Urine,Clean Catch Urine Culture - Preliminary Gram Negative Messi Oneill/IV: Voiding Method Toilet Active Medications - Current Medications Current Medications: Generic Name Dose Route Start Last Admin Trade Name Freq PRN Reason Stop Dose Admin Acetaminophen 650 mg 05/02/21 01:44 Acetaminophen 325 Mg Tab PO Q4H PRN Pain MILD(1-3)/Fever >100.5/JON Al Hydrox/Mg Hydrox/Simethicone 30 ml 05/02/21 01:44 Alum-Mag Hydroxide-Simethicone [id number]/5ml Oral Liqd 30 Ml PO Q4H PRN Indigestion Ascorbic Acid 500 mg 05/02/21 10:00 05/03/21 09:14 Ascorbic Acid 500 Mg Tab PO 500 mg QDAY JACQUELINE Administration Cholecalciferol 1,000 unit 05/02/21 10:00 05/03/21 09:15 Cholecalciferol (Vit D3) 1000 Unit (25 Mcg) Tab PO 1,000 unit QDAY [facility] Administration Clonidine HCl 0.2 mg 05/02/21 14:00 05/04/21 05:39 Clonidine 0.2 Mg Tab PO 0.2 mg Q6HR JACQUELINE Administration Divalproex Sodium 125 mg 05/02/21 11:00 05/03/21 21:[address] 125 Mg Tab PO 125 mg BID JACQUELINE Administration Enoxaparin Sodium 40 mg 05/02/21 10:00 05/03/21 09:18 Enoxaparin 40 Mg/0.4 Ml Inj SUB-Q Not Given DAILY [facility] Protocol Famotidine 20 mg 05/03/21 10:00 05/03/21 21:26 Famotidine 20 Mg Tab PO 20 mg BID JACQUELINE Administration Ibuprofen 800 mg 05/02/21 13:20 Ibuprofen 800 Mg Tab PO Q8H PRN Headache Magnesium Hydroxide 30 ml 05/02/21 01:44 Magnesium Hydroxide (Mom) Oral Liqd Udc PO Q4H PRN Constipation Metoclopramide HCl 10 mg 05/02/21 01:44 Metoclopramide 10 Mg/2 Ml Inj IV Q6H PRN Nausea And Vomiting Naloxone HCl 0.1 mg 05/02/21 01:44 Naloxone 0.4 Mg/1 Ml Inj IV Q2MIN PRN Res Rate </= 8 or 02 SAT < 92% Olanzapine 5 mg 05/02/21 11:00 05/03/21 09:14 Olanzapine 5 Mg Tab PO 5 mg QDAY JACQUELINE Administration Ondansetron HCl 4 mg 05/02/21 01:44 05/03/21 21:41 Ondansetron 4 Mg/2 Ml Inj IV 4 mg Q8H PRN Administration Nausea And Vomiting Senna 8.6 mg 05/02/21 01:44 Sennosides 8.6 Mg Tab PO Q12HR PRN Constipation Sodium Chloride 10 ml 05/02/21 10:00 05/03/21 21:52 Sodium Chloride 0.9% 10 Ml Flush Syringe IV 10 ml BID JACQUELINE Administration Sodium Chloride 10 ml 05/02/21 01:44 Sodium Chloride 0.9% 10 Ml Flush Syringe IV PRN PRN LINE FLUSH Tramadol HCl 50 mg 05/02/21 01:48 05/03/21 21:26 Tramadol 50 Mg Tab PO 50 mg Q6H PRN Administration Pain, Moderate (4-6) Trazodone HCl 50 mg 05/02/21 22:00 05/03/21 21:26 Trazodone 50 Mg Tab PO 50 mg QHS JACQUELINE Administration Nutrition/Malnutrition Assess - Dietary Evaluation Nutrition/Malnutrition Findings: Nutrition Notes Start: 05/02/21 16:28 Freq: Status: Active Protocol: Document 05/03/21 09:50 BHARAT (Rec: 05/03/21 10:43 BHARAT [id number]) Nutrition Notes Need for Assessment generated from: MD Order Initial or Follow up Assessment Other Pertinent Diagnosis Sucidal Ideation, possible COVID Current Diet Regular Diet Labs/Tests 05/03: Na 133, Cl 95.8, K 3.5, Glu 112. Pertinent Medications 05/03: Reviewed; Vit C, Vit D3 . Height 5 ft 2 in Weight 61.235 kg [place] Body Weight (kg) 50.00 BMI 24.7 Intake Prior to Admission Good Weight Status Appropriate Subjective/Other Information Pt tolerates food well and has regular BM. Percent of energy/protein needs met: It appears Pt is achieving all protein/energy needs from PO intake of 75% or more from Regular Diet prescribed. Burn Absent Trauma Absent GI Symptoms None Food Allergy No Skin Integrity/Comment No integumentary issues Current % PO Good (75-100%) Minimum of two criteria No physical signs of malnutrition #1 Nutrition Diagnosis No nutrition diagnosis at this time Comments: No report of PO intake of meals difficulty found Is patient on ventilator? No Is Patient Ambulatory and/or Out of Bed Yes REE-([facility]-ambulatory/OOB) [ 6752.354 NUTR.MSJOOB] Kcal/Kg value to use for calculation 26 Approximate Energy Requirements Using 1592 kcal/Kg Calculation Used for Recommendations Kcal/kg Additional Notes Protein: 0.8-1.0 g/Kg/day; 40- 50 g/day; 160-200 Kcal/day ( from IBW) Fluids: 1.0 ml/Kcal/day, oer as per MD. Nutrition Intervention Goal #1 Maintain intake 75% or more of meals to fulfill the energy/ protein needs during LOS Goal #2 Maintain Body Weight within +/ -3% of actual BWt Follow-Up By: 05/10/21
[2021-05-04] MEDS: FAMOTIDINE 20 MG TAB PO SCH ×2 (09:38→22:31)
[2021-05-04] MEDS: CHOLECALCIFEROL (VIT D3) 1000 UNIT (25 mcg) TAB PO SCH (09:38)
[2021-05-04] MEDS: ASCORBIC ACID 500 MG TAB PO SCH (09:38)
[2021-05-04] MEDS: DIVALPROEX DR 125 MG TAB PO SCH (09:39)
[2021-05-04] MEDS: ENOXAPARIN 40 MG/0.4 ML INJ SUB-Q SCH (09:40)
--- NOTE | 2021-05-04 10:46 | Progress Note ---
Subjective - Reason for Consult Consult date: 05/04/21 Reason for consult: SI - Chief Complaint Chief complaint: The patient was seen today, she continues to endorse suicidal ideation with a plan " to get hit by a car." REVIEW OF SYSTEMS Constitutional: Negative for weight loss ENT: Negative for stridor Respiratory: Negative for cough or hemoptysis All other systems reviewed and are negative MENTAL STATUS EXAMINATION General Appearance and Behavior: Age appropriate, good hygiene, wearing appropriate clothes, calm and cooperative, withdrawn Cooperation: engaged Psychomotor Behavior: Psychomotor normal Mood: depressed Affect and affective range: congruent with stated mood Thought Process: illogical Thought Content: SI, hallucinations Speech: Normal volume, Regular rate and rhythm, Suicidal Ideation: Yes Homicidal Ideation: Denies Hallucinations: Denies Delusions: None elicited Impulse Control: impaired Insight and Judgment: Limited Memory: Limited Attention: attentive Orientation: a/o Assessment and Plan (1) Polysubstance Dependence (2) Bipolar Disorder Treatment Plan Continue [address] 250mg po BID Start Olanzapine 10mg po QHS Trazodone 50mg po qhs Sitter: per primary Medical: Per primary Disposition: recommend acute psychiatric inpatient treatment. Will follow. Thanks case staffed with Dr. Rea Medications and Allergies Mental Status Exam - Vital signs Last Vital Signs Temp 99.8 F H 05/04/21 05:14 Pulse 63 05/04/21 05:39 Resp 20 05/04/21 05:14 BP 145/94 05/04/21 05:39 Pulse Ox 100 05/04/21 05:14
[2021-05-04] MEDS: cefTRIAXone/NS 1 GM/50 ML 1 GM/50 ML BAG IV SCH (12:46)
[2021-05-04] MEDS: traMADol 50 MG TAB PO PRN (12:52)
[2021-05-04] MEDS: traZODone 50 MG TAB PO SCH (22:31)
[2021-05-04] MEDS: DIVALPROEX DR 250 MG TAB PO SCH (22:31)
[2021-05-05] MEDS: cloNIDine 0.2 MG TAB PO SCH ×5 (00:13→23:34)
[2021-05-05] MEDS: traMADol 50 MG TAB PO PRN ×2 (00:25→19:51)
[2021-05-05 08:49] LABS: BUN/Creatinine Ratio 29; Blood Urea Nitrogen 20 mg/dL (7-17); Hemolysis Index 51
[2021-05-05] MEDS: FAMOTIDINE 20 MG TAB PO SCH ×2 (09:31→21:12)
[2021-05-05] MEDS: DIVALPROEX DR 250 MG TAB PO SCH ×2 (09:31→21:11)
[2021-05-05] MEDS: CHOLECALCIFEROL (VIT D3) 1000 UNIT (25 mcg) TAB PO SCH (09:31)
[2021-05-05] MEDS: ASCORBIC ACID 500 MG TAB PO SCH (09:31)
[2021-05-05] MEDS: ENOXAPARIN 40 MG/0.4 ML INJ SUB-Q SCH (10:41)
--- NOTE | 2021-05-05 13:32 | Progress Note ---
Assessment and Plan Assessment and plan: #COVID-19 infection -positive PCR 05/01 -not requiring oxygen, no indication for steroids or remdesivir at this time -continuous pulse oximetry -continue isolation per COVID protocols -supportive care #Suicidal ideation -Psychiatry following, assistance appreciated -continue Depakote and Zyprexa #Acidosis -Resolved -Normal saline discontinued #UTI -Urine culture growing E. coli x2 sensitive to Rocephin -Patient reported dysuria -continue ceftriaxone, will treat for 3 days (day 2 of 3) #Leukopenia -resolved -patient has history of IVDU, will consider Hepatitis and HIV screening #Polysubstance abuse -UDS positive for opiates and cocaine -self reported heroin IV use -IVFs and clondine for withdrawal symptoms -PRN zofran for N/V #DVT prophylaxis -lovenox Disposition Plan: Inpatient psych Total Time Spent with Patient (Minutes): 20 minutes History Interval history: No acute events overnight. She is sleepy today and less talkative. Tolerates food. No other complaints at this time. Hospitalist Physical - Physical exam Narrative exam: GENERAL: Thin woman. Lying in bed bed in no acute distress. HEENT: Poor dentition CHEST/LUNGS: CTAB on room air HEART/CARDIOVASCULAR: RRR. No murmur, rubs or gallops appreciated. ABDOMEN: +BS. NT/ND. EXTREMITIES: No cyanosis, clubbing or edema. PSYCH: Cooperative. - Constitutional Vitals: Temp Pulse Resp BP Pulse Ox 99.0 F 53 L 18 156/92 100 05/05/21 12:55 05/05/21 12:55 05/05/21 12:55 05/05/21 12:55 05/05/21 12:55 General appearance: Present: mild distress, well-nourished Results - Labs CBC & Chem 7: 05/04/21 05:04 05/05/21 07:04 Labs: Laboratory Last Values WBC 5.6 K/mm3 (4.5-11.0) 05/04/21 05:04 RBC 5.22 M/mm3 (3.65-5.03) H 05/04/21 05:04 Hgb 12.0 gm/dl (10.1-14.3) 05/04/21 05:04 Hct 35.4 % (30.3-42.9) 05/04/21 05:04 MCV 68 fl (79-97) L 05/04/21 05:04 MCH 23 pg (28-32) L 05/04/21 05:04 MCHC 34 % (30-34) 05/04/21 05:04 RDW 19.3 % (13.2-15.2) H 05/04/21 05:04 Plt Count 363 K/mm3 (140-440) 05/04/21 05:04 Lymph % (Auto) 44.5 % (13.4-35.0) H 05/01/21 22:07 [place] % (Auto) 9.4 % (0.0-7.3) H 05/01/21 22:07 Eos % (Auto) 1.7 % (0.0-4.3) 05/01/21 22:07 Baso % (Auto) 0.8 % (0.0-1.8) 05/01/21 22:07 Lymph # (Auto) 1.1 K/mm3 (1.2-5.4) L 05/01/21 22:07 [place] # (Auto) 0.2 K/mm3 (0.0-0.8) 05/01/21 22:07 Eos # (Auto) 0.0 K/mm3 (0.0-0.4) 05/01/21 22:07 Baso # (Auto) 0.0 K/mm3 (0.0-0.1) 05/01/21 22:07 Seg Neutrophils % 43.6 % (40.0-70.0) 05/01/21 22:07 Seg Neutrophils # 1.1 K/mm3 (1.8-7.7) L 05/01/21 22:07 D-Dimer 383.59 ng/mlDDU (0-234) H 05/02/21 02:26 Sodium 136 mmol/L (137-145) L 05/05/21 07:04 Potassium 4.5 mmol/L (3.6-5.0) D 05/05/21 07:04 Chloride 102.5 mmol/L (98-107) 05/05/21 07:04 Carbon Dioxide 21 mmol/L (22-30) L 05/05/21 07:04 Anion Gap 17 mmol/L 05/05/21 07:04 BUN 20 mg/dL (7-17) H 05/05/21 07:04 Creatinine 0.7 mg/dL (0.6-1.2) 05/05/21 07:04 Estimated GFR > 60 ml/min 05/05/21 07:04 BUN/Creatinine Ratio 29 % 05/05/21 07:04 Glucose 90 mg/dL (65-100) 05/05/21 07:04 Lactic Acid 1.50 mmol/L (0.7-2.0) 05/04/21 08:05 Calcium 9.0 mg/dL (8.4-10.2) 05/05/21 07:04 Ferritin 18.0 ng/mL (10.0-200.0) 05/02/21 02:26 Total Bilirubin 0.20 mg/dL (0.1-1.2) 05/03/21 06:40 AST 31 units/L (5-40) 05/03/21 06:40 ALT 31 units/L (7-56) 05/03/21 06:40 Alkaline Phosphatase 125 units/L (35-129) 05/03/21 06:40 Lactate Dehydrogenase 200 units/L (91-180) H 05/02/21 02:26 C-Reactive Protein 0.10 mg/dL (0.00-1.30) 05/02/21 02:26 Total Protein 8.7 g/dL (6.3-8.2) H 05/03/21 06:40 Albumin 4.0 g/dL (3.9-5) 05/03/21 06:40 Albumin/Globulin Ratio 0.9 % 05/03/21 06:40 Procalcitonin 0.19 ng/mL (<0.15) 05/01/21 23:08 HCG, Qual Negative (Negative) 05/01/21 22:07 Urine Color Straw (Yellow) 05/01/21 22:01 Urine Turbidity Clear (Clear) 05/01/21 22:01 Urine pH 7.0 (5.0-7.0) 05/01/21 22:01 Ur Specific [place] 1.006 (1.003-1.030) 05/01/21 22:01 Urine Protein <15 mg/dl mg/dL (Negative) 05/01/21 22:01 Urine Glucose (UA) Neg mg/dL (Negative) 05/01/21 22:01 Urine Ketones Neg mg/dL (Negative) 05/01/21 22:01 Urine Blood Lg (Negative) 05/01/21 22:01 Urine Nitrite Neg (Negative) 05/01/21 22:01 Urine Bilirubin Neg (Negative) 05/01/21 22:01 Urine Urobilinogen < 2.0 mg/dL (<2.0) 05/01/21 22:01 Ur Leukocyte Esterase Tr (Negative) 05/01/21 22:01 Urine WBC (Auto) 10.0 /HPF (0.0-6.0) H 05/01/21 22:01 Urine RBC (Auto) 8.0 /HPF (0.0-6.0) 05/01/21 22:01 U Epithel Cells (Auto) 1.0 /HPF (0-13.0) 05/01/21 22:01 Urine Bacteria (Auto) 2+ /HPF (Negative) 05/01/21 22:01 Salicylates < 0.3 mg/dL (2.8-20.0) L 05/01/21 22:07 Urine Opiates Screen Presumptive positive 05/01/21 22:01 Urine Methadone Screen Presumptive negative 05/01/21 22:01 Acetaminophen 5.0 ug/mL (10.0-30.0) L 05/01/21 22:07 Ur Barbiturates Screen Presumptive negative 05/01/21 22:01 Ur Phencyclidine Scrn Presumptive negative 05/01/21 22:01 Ur Amphetamines Screen Presumptive negative 05/01/21 22:01 U Benzodiazepines Scrn Presumptive negative 05/01/21 22:01 Urine Cocaine Screen Presumptive positive 05/01/21 22:01 U Marijuana (THC) Screen Presumptive negative 05/01/21 22:01 Drugs of Abuse Note Disclamer 05/01/21 22:01 Plasma/Serum Alcohol < 0.01 % (0-0.07) 05/01/21 22:07 Coronavirus (PCR) Positive (Negative) A 05/02/21 Unknown Microbiology: Microbiology 05/01/21 23:42 Peripheral/Venous Blood Culture - Preliminary NO GROWTH AFTER 72 HOURS 05/01/21 23:08 Peripheral/Venous Blood Culture - Preliminary NO GROWTH AFTER 72 HOURS 05/01/21 22:01 Urine,Clean Catch Urine Culture - Final Escherichia Coli Escherichia Coli#2 Oneill/IV: Voiding Method Toilet Active Medications - Current Medications Current Medications: Generic Name Dose Route Start Last Admin Trade Name Freq PRN Reason Stop Dose Admin Acetaminophen 650 mg 05/02/21 01:44 05/05/21 05:31 Acetaminophen 325 Mg Tab PO 650 mg Q4H PRN Administration Pain MILD(1-3)/Fever >100.5/JON Al Hydrox/Mg Hydrox/Simethicone 30 ml 05/02/21 01:44 Alum-Mag Hydroxide-Simethicone [id number]/5ml Oral Liqd 30 Ml PO Q4H PRN Indigestion Ascorbic Acid 500 mg 05/02/21 10:00 05/05/21 09:31 Ascorbic Acid 500 Mg Tab PO 500 mg QDAY JACQUELINE Administration Cholecalciferol 1,000 unit 05/02/21 10:00 05/05/21 09:31 Cholecalciferol (Vit D3) 1000 Unit (25 Mcg) Tab PO 1,000 unit QDAY JACQUELINE Administration Clonidine HCl 0.2 mg 05/02/21 14:00 05/05/21 05:31 Clonidine 0.2 Mg Tab PO 0.2 mg Q6HR JACQUELINE Administration Divalproex Sodium 250 mg 05/04/21 22:00 05/05/21 09:[address] 250 Mg Tab PO 250 mg BID JACQUELINE Administration Enoxaparin Sodium 40 mg 05/02/21 10:00 05/05/21 10:41 Enoxaparin 40 Mg/0.4 Ml Inj SUB-Q Not Given DAILY JACQUELINE Protocol Famotidine 20 mg 05/03/21 10:00 05/05/21 09:31 Famotidine 20 Mg Tab PO 20 mg BID JACQUELINE Administration Ceftriaxone Sodium 1 gm in 50 mls @ 100 mls/hr 05/04/21 12:00 05/04/21 12:46 Rocephin/Ns 1 Gm/50 Ml IV 05/06/21 12:29 100 mls/hr Q24H JACQUELINE Administration Protocol Ibuprofen 800 mg 05/02/21 13:20 Ibuprofen 800 Mg Tab PO Q8H PRN Headache Magnesium Hydroxide 30 ml 05/02/21 01:44 Magnesium Hydroxide (Mom) Oral Liqd Udc PO Q4H PRN Constipation Metoclopramide HCl 10 mg 05/02/21 01:44 Metoclopramide 10 Mg/2 Ml Inj IV Q6H PRN Nausea And Vomiting Naloxone HCl 0.1 mg 05/02/21 01:44 Naloxone 0.4 Mg/1 Ml Inj IV Q2MIN PRN Res Rate </= 8 or 02 SAT < 92% Olanzapine 10 mg 05/04/21 22:00 05/04/21 22:31 Olanzapine 10 Mg Tab PO 10 mg QHS JACQUELINE Administration Ondansetron HCl 4 mg 05/02/21 01:44 05/03/21 21:41 Ondansetron 4 Mg/2 Ml Inj IV 4 mg Q8H PRN Administration Nausea And Vomiting Senna 8.6 mg 05/02/21 01:44 Sennosides 8.6 Mg Tab PO Q12HR PRN Constipation Sodium Chloride 10 ml 05/02/21 10:00 05/05/21 09:32 Sodium Chloride 0.9% 10 Ml Flush Syringe IV 10 ml BID JACQUELINE Administration Sodium Chloride 10 ml 05/02/21 01:44 Sodium Chloride 0.9% 10 Ml Flush Syringe IV PRN PRN LINE FLUSH Tramadol HCl 50 mg 05/02/21 01:48 05/05/21 00:25 Tramadol 50 Mg Tab PO 50 mg Q6H PRN Administration Pain, Moderate (4-6) Trazodone HCl 50 mg 05/02/21 22:00 05/04/21 22:31 Trazodone 50 Mg Tab PO 50 mg QHS JACQUELINE Administration Nutrition/Malnutrition Assess - Dietary Evaluation Nutrition/Malnutrition Findings: Nutrition Notes Start: 05/02/21 16:28 Freq: Status: Active Protocol: Document 05/03/21 09:50 BHARAT (Rec: 05/03/21 10:43 BHARAT [id number]) Nutrition Notes Need for Assessment generated from: MD Order Initial or Follow up Assessment Other Pertinent Diagnosis Sucidal Ideation, possible COVID Current Diet Regular Diet Labs/Tests 05/03: Na 133, Cl 95.8, K 3.5, Glu 112. Pertinent Medications 05/03: Reviewed; Vit C, Vit D3 . Height 5 ft 2 in Weight 61.235 kg [place] Body Weight (kg) 50.00 BMI 24.7 Intake Prior to Admission Good Weight Status Appropriate Subjective/Other Information Pt tolerates food well and has regular BM. Percent of energy/protein needs met: It appears Pt is achieving all protein/energy needs from PO intake of 75% or more from Regular Diet prescribed. Burn Absent Trauma Absent GI Symptoms None Food Allergy No Skin Integrity/Comment No integumentary issues Current % PO Good (75-100%) Minimum of two criteria No physical signs of malnutrition #1 Nutrition Diagnosis No nutrition diagnosis at this time Comments: No report of PO intake of meals difficulty found Is patient on ventilator? No Is Patient Ambulatory and/or Out of Bed Yes REE-([facility]-ambulatory/OOB) [ 1612.780 NUTR.MSJOOB] Kcal/Kg value to use for calculation 26 Approximate Energy Requirements Using 1592 kcal/Kg Calculation Used for Recommendations Kcal/kg Additional Notes Protein: 0.8-1.0 g/Kg/day; 40- 50 g/day; 160-200 Kcal/day ( from IBW) Fluids: 1.0 ml/Kcal/day, oer as per MD. Nutrition Intervention Goal #1 Maintain intake 75% or more of meals to fulfill the energy/ protein needs during LOS Goal #2 Maintain Body Weight within +/ -3% of actual BWt Follow-Up By: 05/10/21
[2021-05-05] MEDS: cefTRIAXone/NS 1 GM/50 ML 1 GM/50 ML BAG IV SCH (13:33)
[2021-05-05] MEDS: ALUM-MAG HYDROXIDE-SIMETHICONE 200-200-20MG/5ML ORAL LIQD 30 ML PO PRN ×2 (13:40→19:14)
[2021-05-05] MEDS: traZODone 50 MG TAB PO SCH (21:11)
[2021-05-06] MEDS: cloNIDine 0.2 MG TAB PO SCH ×3 (05:27→18:44)
[2021-05-06] MEDS: ASCORBIC ACID 500 MG TAB PO SCH (09:04)
[2021-05-06] MEDS: FAMOTIDINE 20 MG TAB PO SCH ×2 (09:04→22:13)
[2021-05-06] MEDS: DIVALPROEX DR 250 MG TAB PO SCH ×2 (09:04→22:13)
[2021-05-06] MEDS: CHOLECALCIFEROL (VIT D3) 1000 UNIT (25 mcg) TAB PO SCH (09:04)
[2021-05-06] MEDS: ENOXAPARIN 40 MG/0.4 ML INJ SUB-Q SCH (09:04)
--- NOTE | 2021-05-06 12:15 | Progress Note ---
Assessment and Plan Assessment and plan: #COVID-19 infection -positive PCR 05/01 -not requiring oxygen, no indication for steroids or remdesivir at this time -continuous pulse oximetry -continue isolation per COVID protocols -supportive care #Suicidal ideation -resolved -Psychiatry following, assistance appreciated -1013 discontinued -continue Depakote and Zyprexa #Acidosis -Resolved -Normal saline discontinued #UTI -Urine culture growing E. coli x2 sensitive to Rocephin -Patient reported dysuria -continue ceftriaxone, will treat for 3 days (day 3 of 3) #Leukopenia -resolved -patient has history of IVDU, will consider Hepatitis and HIV screening #Polysubstance abuse -UDS positive for opiates and cocaine -self reported heroin IV use -IVFs and clondine for withdrawal symptoms -PRN zofran for N/V -Patient reports using methadone in the past, will discuss with psychiatry outpatient options #DVT prophylaxis -lovenox Total Time Spent with Patient (Minutes): 20 minutes History Interval history: No acute events overnight. Patient reports eating a little, and has cravings to use. No complaints at this time Hospitalist Physical - Physical exam Narrative exam: GENERAL: Thin woman. Lying in bed bed in no acute distress. HEENT: Poor dentition CHEST/LUNGS: CTAB on room air HEART/CARDIOVASCULAR: RRR. No murmur, rubs or gallops appreciated. ABDOMEN: +BS. NT/ND. EXTREMITIES: No cyanosis, clubbing or edema. PSYCH: Cooperative. - Constitutional Vitals: Temp Pulse Resp BP Pulse Ox 98.5 F 55 L 18 97/59 100 05/06/21 09:30 05/06/21 09:33 05/06/21 09:30 05/06/21 09:30 05/06/21 09:33 General appearance: Present: mild distress, well-nourished - Allied Health Allied health notes reviewed: nursing Results - Labs CBC & Chem 7: 05/04/21 05:04 05/05/21 07:04 Labs: Laboratory Last Values WBC 5.6 K/mm3 (4.5-11.0) 05/04/21 05:04 RBC 5.22 M/mm3 (3.65-5.03) H 05/04/21 05:04 Hgb 12.0 gm/dl (10.1-14.3) 05/04/21 05:04 Hct 35.4 % (30.3-42.9) 05/04/21 05:04 MCV 68 fl (79-97) L 05/04/21 05:04 MCH 23 pg (28-32) L 05/04/21 05:04 MCHC 34 % (30-34) 05/04/21 05:04 RDW 19.3 % (13.2-15.2) H 05/04/21 05:04 Plt Count 363 K/mm3 (140-440) 05/04/21 05:04 Lymph % (Auto) 44.5 % (13.4-35.0) H 05/01/21 22:07 [place] % (Auto) 9.4 % (0.0-7.3) H 05/01/21 22:07 Eos % (Auto) 1.7 % (0.0-4.3) 05/01/21 22:07 Baso % (Auto) 0.8 % (0.0-1.8) 05/01/21 22:07 Lymph # (Auto) 1.1 K/mm3 (1.2-5.4) L 05/01/21 22:07 [place] # (Auto) 0.2 K/mm3 (0.0-0.8) 05/01/21 22:07 Eos # (Auto) 0.0 K/mm3 (0.0-0.4) 05/01/21 22:07 Baso # (Auto) 0.0 K/mm3 (0.0-0.1) 05/01/21 22:07 Seg Neutrophils % 43.6 % (40.0-70.0) 05/01/21 22:07 Seg Neutrophils # 1.1 K/mm3 (1.8-7.7) L 05/01/21 22:07 D-Dimer 383.59 ng/mlDDU (0-234) H 05/02/21 02:26 Sodium 136 mmol/L (137-145) L 05/05/21 07:04 Potassium 4.5 mmol/L (3.6-5.0) D 05/05/21 07:04 Chloride 102.5 mmol/L (98-107) 05/05/21 07:04 Carbon Dioxide 21 mmol/L (22-30) L 05/05/21 07:04 Anion Gap 17 mmol/L 05/05/21 07:04 BUN 20 mg/dL (7-17) H 05/05/21 07:04 Creatinine 0.7 mg/dL (0.6-1.2) 05/05/21 07:04 Estimated GFR > 60 ml/min 05/05/21 07:04 BUN/Creatinine Ratio 29 % 05/05/21 07:04 Glucose 90 mg/dL (65-100) 05/05/21 07:04 Lactic Acid 1.50 mmol/L (0.7-2.0) 05/04/21 08:05 Calcium 9.0 mg/dL (8.4-10.2) 05/05/21 07:04 Ferritin 18.0 ng/mL (10.0-200.0) 05/02/21 02:26 Total Bilirubin 0.20 mg/dL (0.1-1.2) 05/03/21 06:40 AST 31 units/L (5-40) 05/03/21 06:40 ALT 31 units/L (7-56) 05/03/21 06:40 Alkaline Phosphatase 125 units/L (35-129) 05/03/21 06:40 Lactate Dehydrogenase 200 units/L (91-180) H 05/02/21 02:26 C-Reactive Protein 0.10 mg/dL (0.00-1.30) 05/02/21 02:26 Total Protein 8.7 g/dL (6.3-8.2) H 05/03/21 06:40 Albumin 4.0 g/dL (3.9-5) 05/03/21 06:40 Albumin/Globulin Ratio 0.9 % 05/03/21 06:40 Procalcitonin 0.19 ng/mL (<0.15) 05/01/21 23:08 HCG, Qual Negative (Negative) 05/01/21 22:07 Urine Color Straw (Yellow) 05/01/21 22:01 Urine Turbidity Clear (Clear) 05/01/21 22:01 Urine pH 7.0 (5.0-7.0) 05/01/21 22:01 Ur Specific [place] 1.006 (1.003-1.030) 05/01/21 22:01 Urine Protein <15 mg/dl mg/dL (Negative) 05/01/21 22:01 Urine Glucose (UA) Neg mg/dL (Negative) 05/01/21 22:01 Urine Ketones Neg mg/dL (Negative) 05/01/21 22:01 Urine Blood Lg (Negative) 05/01/21 22:01 Urine Nitrite Neg (Negative) 05/01/21 22:01 Urine Bilirubin Neg (Negative) 05/01/21 22:01 Urine Urobilinogen < 2.0 mg/dL (<2.0) 05/01/21 22:01 Ur Leukocyte Esterase Tr (Negative) 05/01/21 22:01 Urine WBC (Auto) 10.0 /HPF (0.0-6.0) H 05/01/21 22:01 Urine RBC (Auto) 8.0 /HPF (0.0-6.0) 05/01/21 22:01 U Epithel Cells (Auto) 1.0 /HPF (0-13.0) 05/01/21 22:01 Urine Bacteria (Auto) 2+ /HPF (Negative) 05/01/21 22:01 Salicylates < 0.3 mg/dL (2.8-20.0) L 05/01/21 22:07 Urine Opiates Screen Presumptive positive 05/01/21 22:01 Urine Methadone Screen Presumptive negative 05/01/21 22:01 Acetaminophen 5.0 ug/mL (10.0-30.0) L 05/01/21 22:07 Ur Barbiturates Screen Presumptive negative 05/01/21 22:01 Ur Phencyclidine Scrn Presumptive negative 05/01/21 22:01 Ur Amphetamines Screen Presumptive negative 05/01/21 22:01 U Benzodiazepines Scrn Presumptive negative 05/01/21 22:01 Urine Cocaine Screen Presumptive positive 05/01/21 22:01 U Marijuana (THC) Screen Presumptive negative 05/01/21 22:01 Drugs of Abuse Note Disclamer 05/01/21 22:01 Plasma/Serum Alcohol < 0.01 % (0-0.07) 05/01/21 22:07 Coronavirus (PCR) Positive (Negative) A 05/02/21 Unknown Microbiology: Microbiology 05/01/21 23:42 Peripheral/Venous Blood Culture - Preliminary NO GROWTH AFTER 4 DAYS 05/01/21 23:08 Peripheral/Venous Blood Culture - Preliminary NO GROWTH AFTER 4 DAYS Oneill/IV: Voiding Method Toilet Active Medications - Current Medications Current Medications: Generic Name Dose Route Start Last Admin Trade Name Freq PRN Reason Stop Dose Admin Acetaminophen 650 mg 05/02/21 01:44 05/05/21 05:31 Acetaminophen 325 Mg Tab PO 650 mg Q4H PRN Administration Pain MILD(1-3)/Fever >100.5/JON Al Hydrox/Mg Hydrox/Simethicone 30 ml 05/02/21 01:44 05/05/21 19:14 Alum-Mag Hydroxide-Simethicone 291-505-11oy/5ml Oral Liqd 30 Ml PO 30 ml Q4H PRN Administration Indigestion Ascorbic Acid 500 mg 05/02/21 10:00 05/06/21 09:04 Ascorbic Acid 500 Mg Tab PO 500 mg QDAY JACQUELINE Administration Cholecalciferol 1,000 unit 05/02/21 10:00 05/06/21 09:04 Cholecalciferol (Vit D3) 1000 Unit (25 Mcg) Tab PO 1,000 unit QDAY JACQUELINE Administration Clonidine HCl 0.2 mg 05/02/21 14:00 05/06/21 05:27 Clonidine 0.2 Mg Tab PO 0.2 mg Q6HR JACQUELINE Administration Divalproex Sodium 250 mg 05/04/21 22:00 05/06/21 09:[address] 250 Mg Tab PO 250 mg BID JACQUELINE Administration Enoxaparin Sodium 40 mg 05/02/21 10:00 05/06/21 09:04 Enoxaparin 40 Mg/0.4 Ml Inj SUB-Q 40 mg DAILY JACQUELINE Administration Protocol Famotidine 20 mg 05/03/21 10:00 05/06/21 09:04 Famotidine 20 Mg Tab PO 20 mg BID JACQUELINE Administration Ceftriaxone Sodium 1 gm in 50 mls @ 100 mls/hr 05/04/21 12:00 05/05/21 13:33 Rocephin/Ns 1 Gm/50 Ml IV 05/06/21 12:29 100 mls/hr Q24H JACQUELINE Administration Protocol Ibuprofen 800 mg 05/02/21 13:20 Ibuprofen 800 Mg Tab PO Q8H PRN Headache Magnesium Hydroxide 30 ml 05/02/21 01:44 Magnesium Hydroxide (Mom) Oral Liqd Udc PO Q4H PRN Constipation Metoclopramide HCl 10 mg 05/02/21 01:44 Metoclopramide 10 Mg/2 Ml Inj IV Q6H PRN Nausea And Vomiting Naloxone HCl 0.1 mg 05/02/21 01:44 Naloxone 0.4 Mg/1 Ml Inj IV Q2MIN PRN Res Rate </= 8 or 02 SAT < 92% Olanzapine 10 mg 05/04/21 22:00 05/05/21 21:12 Olanzapine 10 Mg Tab PO 10 mg QHS JACQUELINE Administration Ondansetron HCl 4 mg 05/02/21 01:44 05/03/21 21:41 Ondansetron 4 Mg/2 Ml Inj IV 4 mg Q8H PRN Administration Nausea And Vomiting Senna 8.6 mg 05/02/21 01:44 Sennosides 8.6 Mg Tab PO Q12HR PRN Constipation Sodium Chloride 10 ml 05/02/21 10:00 05/06/21 09:04 Sodium Chloride 0.9% 10 Ml Flush Syringe IV 10 ml BID JACQUELINE Administration Sodium Chloride 10 ml 05/02/21 01:44 Sodium Chloride 0.9% 10 Ml Flush Syringe IV PRN PRN LINE FLUSH Tramadol HCl 50 mg 05/02/21 01:48 05/05/21 19:51 Tramadol 50 Mg Tab PO 50 mg Q6H PRN Administration Pain, Moderate (4-6) Trazodone HCl 50 mg 05/02/21 22:00 05/05/21 21:11 Trazodone 50 Mg Tab PO 50 mg QHS JACQUELINE Administration Nutrition/Malnutrition Assess - Dietary Evaluation Nutrition/Malnutrition Findings: Nutrition Notes Start: 05/02/21 16:28 Freq: Status: Active Protocol: Document 05/03/21 09:50 BHARAT (Rec: 05/03/21 10:43 BHARAT [email or web address]) Nutrition Notes Need for Assessment generated from: MD Order Initial or Follow up Assessment Other Pertinent Diagnosis Sucidal Ideation, possible COVID Current Diet Regular Diet Labs/Tests 05/03: Na 133, Cl 95.8, K 3.5, Glu 112. Pertinent Medications 05/03: Reviewed; Vit C, Vit D3 . Height 5 ft 2 in Weight 61.235 kg [place] Body Weight (kg) 50.00 BMI 24.7 Intake Prior to Admission Good Weight Status Appropriate Subjective/Other Information Pt tolerates food well and has regular BM. Percent of energy/protein needs met: It appears Pt is achieving all protein/energy needs from PO intake of 75% or more from Regular Diet prescribed. Burn Absent Trauma Absent GI Symptoms None Food Allergy No Skin Integrity/Comment No integumentary issues Current % PO Good (75-100%) Minimum of two criteria No physical signs of malnutrition #1 Nutrition Diagnosis No nutrition diagnosis at this time Comments: No report of PO intake of meals difficulty found Is patient on ventilator? No Is Patient Ambulatory and/or Out of Bed Yes REE-([facility]-ambulatory/OOB) [ 1612.780 [id number]] Kcal/Kg value to use for calculation 26 Approximate Energy Requirements Using 1592 kcal/Kg Calculation Used for Recommendations Kcal/kg Additional Notes Protein: 0.8-1.0 g/Kg/day; 40- 50 g/day; 160-200 Kcal/day ( from IBW) Fluids: 1.0 ml/Kcal/day, oer as per MD. Nutrition Intervention Goal #1 Maintain intake 75% or more of meals to fulfill the energy/ protein needs during LOS Goal #2 Maintain Body Weight within +/ -3% of actual BWt Follow-Up By: 05/10/21
--- NOTE | 2021-05-06 12:19 | Progress Note ---
Subjective - Reason for Consult Consult date: 05/06/21 Reason for consult: SI - Chief Complaint Chief complaint: The patient was seen today, she reports doing well. The patient presents with withdrawal symptoms such as cravings for heroine, and cold sweats. She denies having any current suicidal/homicidal ideation and denies hallucinations. REVIEW OF SYSTEMS Constitutional: Negative for weight loss ENT: Negative for stridor Respiratory: Negative for cough or hemoptysis All other systems reviewed and are negative MENTAL STATUS EXAMINATION General Appearance and Behavior: Age appropriate, good hygiene, wearing appropriate clothes, calm and cooperative, withdrawn Cooperation: engaged Psychomotor Behavior: Psychomotor normal Mood: depressed Affect and affective range: congruent with stated mood Thought Process: goal directed Thought Content: Not suicidal Speech: Normal volume, Regular rate and rhythm, Suicidal Ideation: Denies Homicidal Ideation: Denies Hallucinations: Denies Delusions: None elicited Impulse Control: impaired Insight and Judgment: Limited and fair judgment Memory: Limited Attention: attentive Orientation: a/o Assessment and Plan (1) Polysubstance Dependence (2) Bipolar Disorder Treatment Plan Discontinue [address] 250mg po BID Continue Olanzapine 10mg po QHS Continue Trazodone 50mg po qhs Sitter: per primary Medical: Per primary Disposition: Do not recommend acute psychiatric inpatient treatment. Will follow for medication management. Thanks case staffed with Dr. Rea Medications and Allergies Mental Status Exam - Vital signs Last Vital Signs Temp 98.5 F 05/06/21 09:30 Pulse 55 L 05/06/21 09:33 Resp 18 05/06/21 09:30 BP 97/59 05/06/21 09:30 Pulse Ox 100 05/06/21 09:33
[2021-05-06] MEDS: cefTRIAXone/NS 1 GM/50 ML 1 GM/50 ML BAG IV SCH (13:15)
[2021-05-06] MEDS: traMADol 50 MG TAB PO PRN ×2 (13:18→22:14)
[2021-05-06] MEDS: ALUM-MAG HYDROXIDE-SIMETHICONE 200-200-20MG/5ML ORAL LIQD 30 ML PO PRN (14:08)
[2021-05-06] MEDS: traZODone 50 MG TAB PO SCH (22:13)
[2021-05-07] MEDS: cloNIDine 0.2 MG TAB PO SCH ×4 (00:41→17:53)
[2021-05-07] MEDS: ONDANSETRON 4 MG/2 ML INJ IV PRN (05:46)
[2021-05-07 09:05] LABS: Blood Urea Nitrogen 20 mg/dL (7-17); Calcium 9.1 mg/dL (8.4-10.2); Hemolysis Index 0
[2021-05-07 09:10] LABS: BUN/Creatinine Ratio 33
[2021-05-07] MEDS: FAMOTIDINE 20 MG TAB PO SCH ×2 (09:44→21:43)
[2021-05-07] MEDS: ENOXAPARIN 40 MG/0.4 ML INJ SUB-Q SCH (09:44)
[2021-05-07] MEDS: ASCORBIC ACID 500 MG TAB PO SCH (09:44)
[2021-05-07] MEDS: DIVALPROEX DR 250 MG TAB PO SCH ×2 (09:44→21:43)
[2021-05-07] MEDS: CHOLECALCIFEROL (VIT D3) 1000 UNIT (25 mcg) TAB PO SCH (09:44)
[2021-05-07] MEDS: traMADol 50 MG TAB PO PRN ×2 (13:22→21:44)
--- NOTE | 2021-05-07 13:26 | Discharge Summary ---
Providers - Providers Date of Admission: 05/02/21 10:51 Date of discharge: 05/07/21 Attending physician: TORY GAMA MD 05/02/21 01:44 Consult to Physician [CONS] Routine Comment: Consulting Provider: KYLE BOYLE Physician Instructions: Reason For Exam: pui 05/02/21 01:51 psychiatry consult [Consult to Mental Health] [CONS] Stat Reason For Exam: suicidal ideation Primary care physician: BOTTOM SANDER Hospitalization Reason for admission: Suicidal ideation Condition: Good Pertinent studies: Reviewed. Procedures: None. Hospital course: The patient is a 40-year-old female with past medical history of polysubstance abuse, depression with prior suicidal attempts, and homelessness who presented to the ED with complaints of suicidal ideation. At that point in time the patient was having thoughts of overdosing intentionally on heroin. The patient was placed on a 1013 hold in order to obtain further evaluation by psychiatry. The patient was found to have E. coli UTI that was treated with ceftriaxone (total of 3 days). The patient was also found to be positive for COVID-19 however she had no respiratory symptoms and was placed on respiratory isolation per Covid protocols. The 1013 hold was discontinued on 05/06/2021 per psychiatry, and the patient is safe for discharge. Case management was notified of her homelessness and is currently searching for placement. Disposition: 01 HOME / SELF CARE / HOMELESS Final Discharge Diagnosis (Prints w/discharge instructions): Suicidal ideation; E. coli UTI; COVID-19 infection Core Measure Documentation - Palliative Care Palliative Care/ Comfort Measures: Not Applicable - Core Measures Any of the following diagnoses?: none - VTE Discharge Requirements Deep Vein Thrombosis/Pulmonary Embolism Present on Admission: No Has pt received <5 days of overlap therapy or INR<2.0: No Anticoagulant overlap therapy prescribed at discharge: No Contraindication No Overlap Therapy order at DC: Not Indicated (Not apical) - Acute CT Discharge Requirements Aspirin at discharge: No Reason for no aspirin on DC: Medical contraindication (Not applicable) ADIN/ARB for LVSD if EF <40%: Not Applicable Reason for no ADIN/ARB: Medical contraindication (Not applicable) Beta tristin at discharge: No Reason for no beta tristin on DC: Medical contraindication (Not applicable) Statin for LDL = or >100 mg/dl on DC: Not Applicable Reason for no statin on DC: Medical contraindication (Not applicable) - Heart Failure Discharge Requirements ADIN/ARB for LVSD if EF <40%: Not Applicable Reason for no ADIN/ARB: Medical contraindication (Not applicable) Beta tristin at discharge: No Reason for no beta tristin on DC: Medical contraindication (Not applicable) - Stroke Discharge Requirements Statin for LDL = or >70 mg/dl on DC: Not Applicable Reason for no statin on DC: Not Indicated Anticoag for atrial fib/atrial flutter: Not Applicable Reason for no anticoag for AF/F on DC: Not Indicated Antithrombotic for ischemic stroke: No Reason for no antithrombotic on DC: Not Indicated Exam - Constitutional Vitals: Temp Pulse Resp BP Pulse Ox 98.6 F 66 18 138/82 100 05/07/21 11:23 05/07/21 11:23 05/07/21 11:23 05/07/21 11:23 05/07/21 11:23 General appearance: Present: no acute distress - EENT Eyes: Present: PERRL, EOM intact ENT: hearing intact, clear oral mucosa - Neck Neck: Present: supple, normal ROM - Respiratory Respiratory effort: normal - Cardiovascular Rhythm: regular Heart Sounds: Present: S1 & S2 - Extremities Extremities: no ischemia, pulses intact, pulses symmetrical, No edema, normal temperature, normal color Peripheral Pulses: within normal limits - Abdominal General gastrointestinal: Present: soft, non-tender, non-distended, normal bowel sounds Female genitourinary: Present: deferred - Rectal Rectal Exam: deferred - Integumentary Integumentary: Present: clear, warm, dry - Musculoskeletal Musculoskeletal: strength equal bilaterally - Psychiatric Psychiatric: appropriate mood/affect, intact judgment & insight, memory intact, cooperative - Neurologic Neurologic: CNII-XII intact, moves all extremities - Allied Health Allied health notes reviewed: nursing Plan Activity: no restrictions Weight Bearing Status: Weight Bear as Tolerated Diet: regular Special Instructions: other (Requires isolation for an additional 4 days per COVID-19 protocols.) Health Concerns: Patient should return to the emergency room if they experience fevers, chills, inability to tolerate oral intake, shortness of breath, worsening chest pain, weakness, confusion, loss of function, or recurrent suicidal ideation/thoughts. Assessment: Discharging to prison. Follow up with: PRIMARY CARE, [Primary Care Provider] - 3-5 Days Prescriptions: traZODone [Desyrel] 50 mg PO QHS PRN 30 Days #30 tab PRN Reason: Insomnia traZODone [Desyrel] 50 mg PO QHS 90 Days tablet OLANzapine [ZyPREXA] 10 mg PO QHS 30 Days #30 tablet OLANzapine [Zyprexa] 10 mg PO QHS 90 Days tablet Divalproex [Samina ONOFRE] 250 mg PO BID 30 Days #60 tablet Divalproex [Samina Onofre] 250 mg PO BID 90 Days tablet Cholecalciferol Vit D3 [Vitamin D3 1,000 UNIT TAB] 1,000 unit PO QDAY #90 tablet
--- NOTE | 2021-05-07 14:08 | Progress Note ---
Subjective - Reason for Consult Consult date: 05/07/21 Reason for consult: SI - Chief Complaint Chief complaint: The patient was seen today, she reports mood as fine. She denies having any current withdrawal symptoms and denies cravings for heroine. She denies any current suicidal/homicidal ideation and denies hallucinations. REVIEW OF SYSTEMS Constitutional: Negative for weight loss ENT: Negative for stridor Respiratory: Negative for cough or hemoptysis All other systems reviewed and are negative MENTAL STATUS EXAMINATION General Appearance and Behavior: Age appropriate, good hygiene, wearing appropriate clothes, calm and cooperative, withdrawn Cooperation: engaged Psychomotor Behavior: Psychomotor normal Mood: "fine" Affect and affective range: congruent with stated mood Thought Process: goal directed Thought Content: Not suicidal Speech: Normal volume, Regular rate and rhythm, Suicidal Ideation: Denies Homicidal Ideation: Denies Hallucinations: Denies Delusions: None elicited Impulse Control: impaired Insight and Judgment: Limited and fair judgment Memory: Limited Attention: attentive Orientation: a/o Assessment and Plan (1) Polysubstance Dependence (2) Bipolar Disorder Treatment Plan Discontinue [address] 250mg po BID Continue Olanzapine 10mg po QHS Continue Trazodone 50mg po qhs Sitter: per primary Medical: Per primary Disposition: Do not recommend acute psychiatric inpatient treatment. Will sign off. Thanks case staffed with Dr. Rea Medications and Allergies Mental Status Exam - Vital signs Last Vital Signs Temp 98.6 F 05/07/21 11:23 Pulse 66 05/07/21 13:23 Resp 18 05/07/21 11:23 BP 138/82 05/07/21 13:23 Pulse Ox 100 05/07/21 11:23
[2021-05-07] MEDS: ALUM-MAG HYDROXIDE-SIMETHICONE 200-200-20MG/5ML ORAL LIQD 30 ML PO PRN (14:12)
[2021-05-07] MEDS: traZODone 50 MG TAB PO SCH (21:43)
[2021-05-08] MEDS: cloNIDine 0.2 MG TAB PO SCH ×2 (00:18→06:01)
[2021-05-08 05:55] VITALS: BP 163/99
[2021-05-08] MEDS: DIVALPROEX DR 250 MG TAB PO SCH (09:21)
[2021-05-08] MEDS: CHOLECALCIFEROL (VIT D3) 1000 UNIT (25 mcg) TAB PO SCH (09:21)
[2021-05-08] MEDS: FAMOTIDINE 20 MG TAB PO SCH (09:22)
[2021-05-08] MEDS: ENOXAPARIN 40 MG/0.4 ML INJ SUB-Q SCH (09:22)
[2021-05-08] MEDS: ASCORBIC ACID 500 MG TAB PO SCH (09:22)
== END 2021-05-08 11:31 | disposition home or self-care (01) | DRG 177 ==
LOC: ED 17:51 → 3A 23:35 → OBSVTOIN 05-02 10:51
PROVIDERS: ADMIT Internal Medicine Geriatric Medicine; ATTEND Student in an Organized Health Care Education/Training Program
DX: U07.1 COVID-19 (principal); J96.01 Acute respiratory failure with hypoxia; R45.851 Suicidal ideations; N30.01 Acute cystitis with hematuria; E87.2 Acidosis; F14.929 Cocaine use, unspecified with intoxication, unspecified; F15.10 Other stimulant abuse, uncomplicated; F31.9 Bipolar disorder, unspecified; F17.200 Nicotine dependence, unspecified, uncomplicated; B96.20 Unspecified Escherichia coli [E. coli] as the cause of diseases classified elsewhere
CPT/HCPCS: 36415; 71045; 80048; 80053; 80307; 80320; 81001; 82140; 82728; 82947; 83615; 84145; 84703; 85025; 85027; 85379; 86140; 87040; 87076; 87086; 87186; G0378; G0480; J0456; J0696; J1100; J1650; J2405; J7030; U0003